=== PATIENT | female | born 1975 | race Caucasian/White ===

== ENCOUNTER 2017-03-05 20:19 | Emergency (ER) | payer OTHER, SELFPAY | END 2017-03-05 21:37 | disposition home or self-care (01) | PROVIDERS: Emergency Provider Nurse Practitioner; Family Provider Emergency Medicine; Visit Provider Nurse Practitioner | DX: J06.9 Acute upper respiratory infection, unspecified (principal); E78.5 Hyperlipidemia, unspecified; Z72.0 Tobacco use; Z88.0 Allergy status to penicillin; Z88.8 Allergy status to other drugs, medicaments and biological substances | CPT/HCPCS: 87804; 96372; 99202 ==

== ENCOUNTER → 2017-09-21 13:42 | Outpatient (REF) | payer OTHER, SELFPAY ==
[2017-09-21 18:51] LABS: Amphetamine/Metha Screen,Urine Negative ng/mL (<1000); Barbiturates Screen,Urine Negative ng/mL (<200); Benzodiazepines Screen,Urine Negative ng/mL (<200); Cannabinoid Screen,Urine Negative ng/mL (<50); Cocaine Screen,Urine Negative ng/mL (<300); Methadone Screen,Urine Negative ng/mL (<300); Opiate Screen,Urine Negative ng/mL (<300); Phencyclidine Screen,Urine Negative ng/mL (<25)
== END ==
LOC: LAB 13:42
PROVIDERS: Visit Provider Emergency Medicine
DX: Z79.899 Other long term (current) drug therapy (principal)
CPT/HCPCS: 80305

== ENCOUNTER → 2018-03-19 18:30 | Outpatient (CLI) | payer OTHER, SELFPAY ==
[2018-03-19 21:32] LABS: Amphetamine/Metha Screen,Urine Negative ng/mL (<1000); Barbiturates Screen,Urine Negative ng/mL (<200); Benzodiazepines Screen,Urine Negative ng/mL (<200); Cannabinoid Screen,Urine Negative ng/mL (<50); Cocaine Screen,Urine Negative ng/mL (<300); Methadone Screen,Urine Negative ng/mL (<300); Opiate Screen,Urine Negative ng/mL (<300); Phencyclidine Screen,Urine Negative ng/mL (<25)
== END ==
PROVIDERS: Visit Provider Nurse Practitioner Family
DX: Z79.899 Other long term (current) drug therapy (principal)
CPT/HCPCS: 80305

== ENCOUNTER → 2018-03-22 16:08 | Outpatient (CLI) | payer OTHER, SELFPAY ==
[2018-03-22 16:40] LABS: Basophils % 0.3 % (0.1-2.0); Eosinophils # 0.2 K/mm3 (0.0-0.4); Eosinophils % 1.9 % (0.1-12.0); Hemoglobin 13.4 g/dL (12.2-16.2); Lymphocytes # 1.8 K/mm3 (0.7-4.5); Lymphocytes % 21.9 % (10-50); Mean Corpuscular HGB Conc 33.5 g/dL (31.8-35.4); Mean Corpuscular Hemoglobin 35.4 pg (27.0-31.2); Mean Corpuscular Volume 105.7 fl (81-99); Mean Platelet Volume 7.7 fl (7.4-10.4); Monocytes # 0.4 K/mm3 (0.1-1.0); Monocytes % 4.3 % (1.7-9.3); Neutrophils # 5.9 K/mm3 (1.8-7.8); Neutrophils % 71.5 % (37.0-80.0); Platelet Count 236 K/mm3 (142-424); Red Blood Count 3.78 M/mm3 (4.20-5.40); Red Cell Distribution Width 12.7 % (11.5-17.5); White Blood Count 8.2 K/mm3 (4.8-10.8)
[2018-03-22 19:08] LABS: Alanine Aminotransferase 18 U/L (12-78); Albumin Level 3.6 gm/dL (3.4-5.0); Albumin/Globulin Ratio 1.1 (1.1-1.8); Alkaline Phosphatase 76 U/L (46-116); Anion Gap 14.9 mEq/L (5-15); Aspartate Amino Transferase 16 U/L (15-37); Bilirubin,Total 0.3 mg/dL (0.2-1.0); Blood Urea Nitrogen 14 mg/dL (7-18); Carbon Dioxide 23 mmol/L (21.0-32.0); Chloride 105 mmol/L (98-107); Creatinine,Serum 0.77 mg/dL (0.55-1.02); Estimated Glomerular Filt Rate 81 ml/min (>60); Free Thyroxine Index 2.6 ug/dL (5.93-13.13); GFR (African American) 99 ML/MIN (>60); Globulin 3.4 gm/dl (1.3-3.2); Glucose 100 mg/dL (74-106); Potassium 3.9 mmoL/L (3.5-5.1); Sodium 139 mmol/L (136-145); T4 (Thyroxine) 7.8 ug/dl (4.7-13.3); Thyroid Stimulating Hormone 0.75 uIU/ml (0.358-3.740); Triiodothryronine (T3) Uptake 33 % (31-39)
[2018-03-24 10:32] LABS: Vitamin B12 260 pg/mL (232-1245); Vitamin D 25 Hydroxy 26.5 ng/mL (30.0-100.0)
[2018-03-26 00:19] LABS: Vitamin E Alpha Tocopherol 11.9 mg/L (7.0-25.1)
[2018-03-26 06:39] LABS: Vitamin B6 6.6 ug/L (2.0-32.8); Vitamin E Gamma Tocopherol 2.7 mg/L (0.5-5.5)
[2018-03-26 18:03] LABS: Vitamin C 0.2 mg/dL (0.2-2.0)
[2018-03-29 07:01] LABS: Vitamin K1 0.57 ng/mL (0.13-1.88)
== END ==
PROVIDERS: Visit Provider Nurse Practitioner Family
DX: E56.9 Vitamin deficiency, unspecified (principal); F41.9 Anxiety disorder, unspecified; Z79.899 Other long term (current) drug therapy
CPT/HCPCS: 36415; 80053; 82180; 82607; 82652; 84207; 84425; 84436; 84443; 84446; 84479; 84590; 84597; 85025

== ENCOUNTER → 2018-03-31 07:31 | Outpatient (CLI) | payer OTHER, SELFPAY ==
[2018-03-31 10:06] LABS: Chol/HDL Ratio 2.7 (1-3.5); Cholesterol 183 mg/dL (140-200); HDL Cholesterol 69 mg/dL (29-89); LDL Cholesterol 97 mg/dL (0-130); Triglycerides 84 mg/dL (30-200); VLDL Cholesterol 17 mg/dL (0-40)
[2018-04-04 19:11] LABS: Vitamin B1 112.9 nmol/L (66.5-200.0)
== END ==
PROVIDERS: Visit Provider Nurse Practitioner Family
DX: E56.9 Vitamin deficiency, unspecified (principal); F41.9 Anxiety disorder, unspecified
CPT/HCPCS: 36415; 80061; 84425

== ENCOUNTER → 2018-08-01 23:14 | Outpatient (CLI) | payer OTHER, SELFPAY | PROVIDERS: PCP Emergency Medicine; Visit Provider Emergency Medicine | DX: J06.9 Acute upper respiratory infection, unspecified (principal) ==

== ENCOUNTER → 2018-09-15 15:04 | Outpatient (CLI) | payer OTHER, SELFPAY ==
[2018-09-15 16:08] LABS: Amphetamine/Metha Screen,Urine Negative ng/mL (<1000); Barbiturates Screen,Urine Negative ng/mL (<200); Benzodiazepines Screen,Urine Negative ng/mL (<200); Cannabinoid Screen,Urine Negative ng/mL (<50); Cocaine Screen,Urine Negative ng/mL (<300); Methadone Screen,Urine Negative ng/mL (<300); Opiate Screen,Urine Negative ng/mL (<300); Phencyclidine Screen,Urine Negative ng/mL (<25)
[2018-09-22 09:13] LABS: Alprazolam Negative (Cutoff=100); Benzodiazepines Positive ng/mL (Cutoff=100); Clonazepam Negative (Cutoff=100); Flurazepam Negative (Cutoff=100); Lorazepam Positive (.); Midazolam Negative (Cutoff=100); Temazepam Negative (Cutoff=100); Triazolam Negative (Cutoff=100)
== END ==
PROVIDERS: Visit Provider Emergency Medicine
DX: Z79.899 Other long term (current) drug therapy (principal); F41.9 Anxiety disorder, unspecified
CPT/HCPCS: 80305; 80346

== ENCOUNTER → 2018-10-21 03:38 | Outpatient (CLI) | payer OTHER, SELFPAY ==
[2018-10-21 04:05] VITALS: BMI 19.5
== END ==
LOC: ER 03:54 → OUTP 04:00
PROVIDERS: PCP Emergency Medicine; Visit Provider Emergency Medicine
DX: J32.9 Chronic sinusitis, unspecified (principal)
CPT/HCPCS: 96372; 96401

== ENCOUNTER → 2019-03-17 18:12 | Outpatient (CLI) | payer BC, SELFPAY ==
[2019-03-17 19:55] LABS: Amphetamine/Metha Screen,Urine Negative ng/mL (<1000); Barbiturates Screen,Urine Negative ng/mL (<200); Benzodiazepines Screen,Urine Negative ng/mL (<200); Cannabinoid Screen,Urine Negative ng/mL (<50); Cocaine Screen,Urine Negative ng/mL (<300); Methadone Screen,Urine Negative ng/mL (<300); Opiate Screen,Urine Negative ng/mL (<300); Phencyclidine Screen,Urine Negative ng/mL (<25)
[2019-03-22 11:10] LABS: Alprazolam Negative (Cutoff=100); Benzodiazepines Positive ng/mL (Cutoff=100); Clonazepam Negative (Cutoff=100); Flurazepam Negative (Cutoff=100); Lorazepam Positive (.); Midazolam Negative (Cutoff=100); Temazepam Negative (Cutoff=100); Triazolam Negative (Cutoff=100)
== END ==
PROVIDERS: Visit Provider Nurse Practitioner Family
DX: Z79.899 Other long term (current) drug therapy (principal)
CPT/HCPCS: 80305; 80346

== ENCOUNTER → 2019-09-20 14:07 | Outpatient (CLI) | payer BC, SELFPAY ==
--- NOTE | 2019-09-20 14:09 | XR_ITS ---
PROCEDURE: XR KNEE RT 4V CLINICAL INDICATION: right knee pain COMPARISON: No exams were available for comparison FINDINGS: No fracture or dislocation. No lytic or blastic change. There is normal mineralization. The joint spaces are well-preserved. No significant degenerative/arthritic changes. No erosive changes evident. Other findings:None. IMPRESSION: Negative right knee Dictated by: Carlos A Boyce MD 09/20/2019 15:21 Electronically signed by Carlos A Boyce MD in [facility] 09/20/2019 15:21
== END ==
PROVIDERS: PCP Emergency Medicine; Visit Provider Orthopaedic Surgery
DX: M25.561 Pain in right knee (principal)
CPT/HCPCS: 73564

== ENCOUNTER 2019-09-22 14:00 | Outpatient (RCR) | payer BC, SELFPAY ==
--- NOTE | 2019-08-29 15:25 | HMH.PTOPEV ---
PT Outpatient Evaluation Rehab PT Outpatient Evaluation Start: 08/29/19 14:02 Freq: Status: Active Protocol: Document 08/29/19 14:02 BRODY (Rec: 08/29/19 15:25 BRODY [id number]) Electronically Signed By Mukul Meyer, PT 08/29/19 14:02 Outpatient Therapy Subjective History Subjective History Pt reports injury to R knee ~2 weeks, twisting injury caused by slipping on wet spot. Pt reports mostly anterior R knee pain, 'crunching' sounds, and intermittent popiteal area pain. Chief Complaint Pain,Clicks,Weakness Symptom Type Ache,Dull Symptoms Relieved By Rest/Positioning,Heat,Ice Symptoms Aggravated By Physical Activity,Walking Prior Functional Limitations None Current Functional Limitations Housework,Walking,Stairs Symptom Description Constant but Variable Level of pain today (0-10) 4 Pain scale - at its best (0-10) 4 Pain scale - at its worst (0-10) 7 Hip/Knee Eval Gait Observation General Gait Pattern Observation Antalgic Gait Palpation Tenderness right Knee Palpation Finding Tenderness Knee Palpation Overall Comment 2-3/4 pat tendon, quad tendon MMT Hip Flexion Strength Grade 4 Good Hip Abduction Strength Grade 4- Good- Hip Adduction Strength Grade 4- Good- Hip Extension Strength Grade 4- Good- Hip External Rotation Strength Grade 4 Good Hip Internal Rotation Strength Grade 4 Good Knee Extension Strength Grade 5 Normal Knee Flexion Strength Grade 5 Normal ROM Knee Flexion Active Range of Motion ( 0-150 degrees) Special Tests Patellar Grind Test Positive Right Patellar Compression Test Positive Right Outpatient Therapy Assessment Impairments Problems/Impairmments Palpation Tenderness,Impaired Range of Motion,Impaired Strength,Impaired Gait Pattern ,Impaired Walking,Impaired Household Care,Impaired Stair Climbing,Subjective C/O Pain, Impaired Self Care/Self Management Prognosis Rehab Potential Good Clinical Impression Consistent with Diagnosis Yes Short Term Goals Number of Weeks 4 Decreased Palpation Tenderness Yes: 1-2/4 Increase Range of Motion Yes: wfl w/o PAIN Increase Strength Yes: 4/5 Increase Ability to Walk Yes: 30MIN Improve Ability For Household Care Yes: 30MIN Decrease Subjective C/O Pain Yes: 05/23 Patient to be Ind w/ HEP
== END 2019-09-22 14:05 | disposition home or self-care (01) ==
LOC: PT 14:00
PROVIDERS: PCP Emergency Medicine; Visit Provider Emergency Medicine
DX: M25.561 Pain in right knee (principal)
CPT/HCPCS: 97010; 97014; 97035; 97110; 97163; G0283

== ENCOUNTER 2019-10-03 20:41 | Outpatient (CLI) | payer BC, SELFPAY ==
[2019-10-03 20:57] VITALS: BMI 19.5
[2019-10-03 20:59] VITALS: BP 115/90; PULSE 88; RESP 15; TEMP 36.5; O2SAT 100
[2019-10-03 21:01] VITALS: BP 115/90; PULSE 88; RESP 15; TEMP 36.5; O2SAT 99
== END 2019-10-03 21:12 | disposition home or self-care (01) ==
LOC: INF 20:45
PROVIDERS: PCP Emergency Medicine; Visit Provider Emergency Medicine
DX: R42 Dizziness and giddiness (principal)
CPT/HCPCS: 96372

== ENCOUNTER → 2019-10-06 14:20 | Outpatient (CLI) | payer BC, SELFPAY ==
--- NOTE | 2019-10-06 14:20 | MR_ITS ---
PROCEDURE: MR KNEE RT WO CON CLINICAL INDICATION: right knee pain/ evaluate for meniscal tear Medial sided knee pain. Pain worse when walking up steps. Grinding in knee. Prior X-Ray 09-20-19 COMPARISON: XR KNEE RT 4V from 09/20/2019 TECHNIQUE: Routine multiplanar multi echo sequences are performed without gadolinium enhancement. FINDINGS: The cruciate ligaments, collateral ligaments, patellar tendon, and quadriceps tendon appear intact. There is a nondisplaced horizontal tear involving the posterior horn of the medial meniscus. The patellar cartilage is preserved. No significant arthritic changes. There is a small cystic area in the proximal tibia centrally and posteriorly measuring 4 mm with a small channel leading to the articular surface without overlying bone marrow edema. IMPRESSION: 1. Nondisplaced horizontal tear involves the posterior horn of the medial meniscus. This may or may not extend to the tibial articular surface but does appear to extend to the medial and posterior free edge of the meniscus 2. Small cystic lesion in the proximal tibia Dictated by: Carlos A Boyce MD 10/07/2019 13:10 Electronically signed by Carlos A Boyce MD in [facility] 10/07/2019 13:10
== END ==
PROVIDERS: PCP Emergency Medicine; Visit Provider Orthopaedic Surgery
DX: G89.29 Other chronic pain (principal); M25.561 Pain in right knee; S89.91XA Unspecified injury of right lower leg, initial encounter
CPT/HCPCS: 73721

== ENCOUNTER → 2019-10-18 09:49 | Outpatient (POV) | payer BC, SELFPAY | PROVIDERS: PCP Emergency Medicine; Visit Provider Otolaryngology | DX: Z00.00 Encounter for general adult medical examination without abnormal findings (principal) ==

== ENCOUNTER 2019-10-28 23:36 | Emergency (ER) | payer BC, SELFPAY ==
[2019-10-28 23:52] VITALS: BP 115/79; PULSE 91; RESP 18; TEMP 36.8; O2SAT 99; BMI 19.5
--- NOTE | 2019-10-29 00:24 | CT_ITS ---
PROCEDURE: CT HEAD/BRAIN WO CON CLINICAL INDICATION: previous fall Patient has problems with balance COMPARISON: No exams were available for comparison TECHNIQUE: Axial images obtained. All CT scans at the facility use one or more dose reduction, viz: automated exposure control, ma/kV adjustment per patient size (including targeted exams where dose is matched to indication, i.e. head), or iterative reconstruction technique. FINDINGS: No midline shift, mass effect, intracranial hemorrhage, hydrocephalus, or extra-axial fluid collection is evident. The calvarium has an unremarkable appearance. No mastoid effusion. No sinus air-fluid level. The internal auditory canals appear normal bilaterally. If symptoms persist a follow-up MRI scan of the brain may be helpful for additional evaluation. IMPRESSION: No acute intracranial finding Dictated by: Dr. Ignacio Rios MD 10/29/2019 07:29 Dr. Ignacio Rios MD in [facility] 10/29/2019 07:29
--- NOTE | 2019-10-29 00:27 | HMH.EDDIZZ ---
ED Disposition Clinical Impression: Vertigo, Neck pain on left side Disposition: Home, Self-Care Condition on Discharge: Good Instructions: Vertigo Additional Instructions: call or see pcp thursday Referrals: David Lee MD [Primary Care Provider] - - Critical Care Critical Care Time: No Attestation: On 10/28/19, the high probability of a clinically significant, sudden or life threatening deterioration of the following system(s) required my full and direct attention, intervention and personal management. The time I documented below is in addition to time spent performing reported procedures but includes the following listed in this critical care notation. Medical Decision Making - Medical Records Medical records reviewed: Yes: I reviewed the patient's medical records. - Ish Inquiry Pt receiving controlled substance: No Vital Signs: 10/28/19 23:52 10/29/19 00:50 Temperature 98.3 F Temperature Source Oral Pulse Rate [Left] 91 H Respiratory Rate 18 Blood Pressure [Left Arm] 115/79 Blood Pressure [Orthostatic Lying Right Arm] 116/76 Blood Pressure [Orthostatic Sitting Right Arm] 107/86 L Blood Pressure [Orthostatic Standing Right Arm] 121/76 Blood Pressure Mean [Left Arm] 91 Blood Pressure Source [Left Arm] Automatic Cuff Blood Pressure Position [Left Arm] Supine 02 Sat by Pulse Oximetry 99 Oxygen Delivery Method Room Air - Lab Data Lab results reviewed: Yes: I reviewed the patient's lab results. Lab Results 10/29/19 00:30: WBC 9.5, RBC 4.11 L, Hgb 14.8, Hct 43.2, MCV 105.3 H, MCH 36.0 H, MCHC 34.2, RDW 12.7, Plt Count 223, MPV 8.7, Neut % (Auto) 75.6, Lymph % (Auto) 17.3, [place] % (Auto) 4.8, Eos % (Auto) 2.0, Baso % (Auto) 0.3, Neut # (Auto) 7.2, Lymph # (Auto) 1.7, [place] # (Auto) 0.5, Eos # (Auto) 0.2, Baso # (Auto) 0.0 10/29/19 00:30: Sodium 138, Potassium 3.8, Chloride 101, Carbon Dioxide 28, Anion Gap 12.8, BUN 12, Creatinine 0.70, Estimated Creat Clear 79, Estimated GFR 90, Est GFR ( Amer) 109, Glucose 96, Calcium 9.2, C-Reactive Protein 1.5 10/29/19 00:30: ESR 15 Result diagrams: 10/29/19 00:30 10/29/19 00:30 Orders (Tests/Meds): ED MEDICATIONS Generic Name Dose Route Start Last Admin Trade Name Lia PRN Reason Stop Dose Admin Sodium Chloride 1,000 mls @ 999 mls/hr 10/29/19 01:00 10/29/19 00:51 Sod Chlor 0.9% 1000ml Bag IV 10/29/19 02:00 999 mls/hr .Q1H1M MARYANN Administration ORDERS Category Date Time Status CT cervical spine wo con Stat Cat Scan 10/29/19 00:[address] head/brain wo con Stat Cat Scan 10/29/19 00:24 Taken Folate Routine Lab 10/29/19 00:30 Received T4 (Thyroxine) Stat Lab 10/29/19 00:30 Received TSH [Thyroid Stimulating Hormone] Stat Lab 10/29/19 00:30 Received Vitamin B12 Routine Lab 10/29/19 01:13 Received - CT Data CT Scan: Head, C-Spine Time Received: 01:[address] Reviewed: Yes: I have viewed the radiologist's interpretation Preliminary Findings: Abnormal (nonspecific ) Dizzy HPI - General Chief Complaint: Dizziness Stated Complaint: Dizziness, neck and shoulder pain Time Seen by Provider: 10/29/19 00:10 Mode of Arrival: Ambulatory Source of Information: Patient, Spouse, Medical Record Limitations: No Limitations Description of Symptoms (Recalled from ER Triage Doc. by RN): pt states on September 30 she fell and hurt her neck. she states ever since she has had neck, shoulder and back pain. its currently 5/10. She also states since the fall she has been having equilibrium problems and that it feels like im rocking. - History of Present Illness HPI Narrative: lat neck pain and headache with episodes of dizzyness and at times unsteady gait - no fever or other sx MD complaint: lightheadedness, difficulty walking Onset (ago): day(s) Timing: waxing/waning Description: off-balance History of similar episodes: Yes History of trauma: No Severity: moderate Relieving factors: remaining still Associated symp
--- NOTE | 2019-10-29 00:29 | CT_ITS ---
PROCEDURE: CT CERVICAL SPINE WO CON CLINICAL INDICATION: neck pain Recent fall COMPARISON: No exams were available for comparison TECHNIQUE: Axial images obtained with sagittal and coronal reformats. All CT scans at the facility use one or more dose reduction, viz: automated exposure control, ma/kV adjustment per patient size (including targeted exams where dose is matched to indication, i.e. head), or iterative reconstruction technique. Axial spiral CT scanning performed of the cervical spine beginning at the base of the skull and continuing to the upper T-spine. 3-D multiplanar reconstruction with 3-D manipulation of volumetric data set in image rendering was completed by the radiologist and/or technologist with the supervision of the radiologist on independent workstation. FINDINGS: 1 there is normal curvature and alignment. C1 through C7 appear intact. Disc spaces are well maintained throughout. The spinal canal is normal in size throughout. There is no abnormal disc protrusion. The prevertebral soft tissues are normal and the odontoid is normal. The lung apices are clear bilaterally. IMPRESSION: Cervical spine intact with no fracture nor subluxation. Dictated by: Dr. Ignacio Rios MD 10/29/2019 07:31 Dr. Ignacio Rios MD in [place] 10/29/2019 07:31
[2019-10-29 00:38] LABS: Basophils % 0.3 % (0.1-2.0); Eosinophils # 0.2 K/mm3 (0.0-0.4); Hematocrit 43.2 % (37.0-47.0); Hemoglobin 14.8 g/dL (12.2-16.2); Lymphocytes # 1.7 K/mm3 (0.7-4.5); Lymphocytes % 17.3 % (10-50); Mean Corpuscular HGB Conc 34.2 g/dL (31.8-35.4); Mean Corpuscular Volume 105.3 fl (81-99); Mean Platelet Volume 8.7 fl (7.4-10.4); Monocytes # 0.5 K/mm3 (0.1-1.0); Monocytes % 4.8 % (1.7-9.3); Neutrophils # 7.2 K/mm3 (1.8-7.8); Neutrophils % 75.6 % (37.0-80.0); Platelet Count 223 K/mm3 (142-424); Red Blood Count 4.11 M/mm3 (4.20-5.40); Red Cell Distribution Width 12.7 % (11.5-17.5); White Blood Count 9.5 K/mm3 (4.8-10.8)
--- NOTE | 2019-10-29 00:39 | PC.NURSE ---
to ct at this time.
[2019-10-29 00:49] LABS: Anion Gap 12.8 mEq/L (5-15); Blood Urea Nitrogen 12 mg/dl (7-17); Calcium 9.2 mg/dl (8.4-10.2); Carbon Dioxide 28 mmol/L (22.0-30.0); Chloride 101 mmol/L (98-107); Creatinine Clearance Estimated 79 mL/min (50-200); Estimated Glomerular Filt Rate 90 ml/min (>60); GFR (African American) 109 ML/MIN (>60); Glucose 96 mg/dl (74-100); Potassium 3.8 mmoL/L (3.5-5.1); Sodium 138 mmol/L (136-145)
[2019-10-29 00:50] VITALS: BP 107/86; BP 116/76; BP 121/76
[2019-10-29 00:54] LABS: C-Reactive Protein 1.5 mg/L (0-4)
[2019-10-29 01:01] LABS: Erythrocyte Sedimentation Rate 15 mm/hr (0-20)
--- NOTE | 2019-10-29 01:02 | PC.NURSE ---
return from ct at this time.
[2019-10-29 01:50] LABS: T4 (Thyroxine) 10.2 ug/dl (5.53-11.0)
[2019-10-29 02:18] VITALS: BP 117/79; PULSE 81; RESP 16; TEMP 36.8
[2019-10-31 10:31] LABS: Vitamin B12 214 pg/mL (232-1245)
[2019-10-31 10:32] LABS: Folate 9.4 ng/mL (>3.0)
== END 2019-10-29 02:22 | disposition home or self-care (01) ==
PROVIDERS: Emergency Provider Emergency Medicine; PCP Emergency Medicine
DX: R42 Dizziness and giddiness (principal); M54.2 Cervicalgia; K21.9 Gastro-esophageal reflux disease without esophagitis; M79.7 Fibromyalgia; F41.9 Anxiety disorder, unspecified; Z88.8 Allergy status to other drugs, medicaments and biological substances; Z88.0 Allergy status to penicillin; Z90.710 Acquired absence of both cervix and uterus
CPT/HCPCS: 70450; 72125; 80048; 82607; 82746; 84436; 84443; 85025; 85651; 86140; 96365; 99283

== ENCOUNTER 2019-10-31 12:44 | Emergency (ER) | payer BC, SELFPAY ==
--- NOTE | 2019-10-31 12:48 | PC.NURSE ---
Pt to restroom upon arrival to ED. Pt has family with her that she requests to go to the bathroom with her because she feels scared
[2019-10-31 12:59] VITALS: BP 130/90; PULSE 115; RESP 18; O2SAT 99; BMI 18.3
[2019-10-31 13:20] LABS: Microscopic, Urine URINE MICROSCOPIC (MICROSCOPIC)
[2019-10-31 13:21] LABS: Basophils % 0.1 % (0.1-2.0); Eosinophils # 0.1 K/mm3 (0.0-0.4); Eosinophils % 0.5 % (0.1-12.0); Hematocrit 41.6 % (37.0-47.0); Lymphocytes # 0.8 K/mm3 (0.7-4.5); Lymphocytes % 7.3 % (10-50); Mean Corpuscular HGB Conc 33.7 g/dL (31.8-35.4); Mean Corpuscular Hemoglobin 35.5 pg (27.0-31.2); Mean Corpuscular Volume 105.4 fl (81-99); Mean Platelet Volume 8.8 fl (7.4-10.4); Monocytes # 0.3 K/mm3 (0.1-1.0); Neutrophils # 10.1 K/mm3 (1.8-7.8); Platelet Count 213 K/mm3 (142-424); Red Blood Count 3.95 M/mm3 (4.20-5.40); Red Cell Distribution Width 12.5 % (11.5-17.5); White Blood Count 11.3 K/mm3 (4.8-10.8)
[2019-10-31 13:22] LABS: MANUAL DIFFERENTIAL MANUAL DIFFERENTIAL (MANUAL DIFF)
[2019-10-31 13:23] LABS: Appearance,Urine CLEAR (Clear); Bilirubin,Urine Negative (Negative); Blood, Urine TRACE-I (Negative); Color,Urine YELLOW (Yellow); Glucose,Urine (UA) Negative (Negative); Ketones,Urine Negative (Negative); Leukocyte Esterase,Urine Negative (Negative); Nitrate,Urine Negative (Negative); PH,Urine 5.5 (5.0-8.5); Protein,Urine Negative (Negative); Specific Gravity, Urine <= 1.005 (1.005-1.030); Urobilinogen,Urine 0.2 EU/dl (0.2)
[2019-10-31 13:26] LABS: Chloride 102 mmol/L (98-107); Sodium 135 mmol/L (136-145); Urine Pregnancy, HCG Qual. Negative (Negative)
[2019-10-31 13:27] LABS: Potassium 3.7 mmoL/L (3.5-5.1)
[2019-10-31 13:29] LABS: Blood Urea Nitrogen 12 mg/dl (7-17); Creatinine Clearance Estimated 77 mL/min (50-200); Estimated Glomerular Filt Rate 90 ml/min (>60); GFR (African American) 109 ML/MIN (>60)
[2019-10-31 13:30] LABS: Anion Gap 12.7 mEq/L (5-15); Calcium 9.2 mg/dl (8.4-10.2); Carbon Dioxide 24 mmol/L (22.0-30.0); Glucose 108 mg/dl (74-100)
--- NOTE | 2019-10-31 13:39 | HMH.EDANX ---
ED Disposition Clinical Impression: Acute anxiety Disposition: Home, Self-Care Condition on Discharge: Good Instructions: Anxiety and Panic Attacks (Alternative Therapy), Anxiety Disorders Referrals: David Lee MD [Primary Care Provider] - 3 days - Critical Care Critical Care Time: No Attestation: On 10/31/19, the high probability of a clinically significant, sudden or life threatening deterioration of the following system(s) required my full and direct attention, intervention and personal management. The time I documented below is in addition to time spent performing reported procedures but includes the following listed in this critical care notation. Medical Decision Making - Medical Records Medical records reviewed: Yes: I reviewed the patient's medical records. - Ish Inquiry Pt receiving controlled substance: No Vital Signs: 10/31/19 12:59 Pulse Rate [Radial] 115 H Respiratory Rate 18 Blood Pressure [Right Arm] 130/90 Blood Pressure Mean [Right Arm] 103 Blood Pressure Source [Right Arm] Automatic Cuff Blood Pressure Position [Right Arm] Sitting 02 Sat by Pulse Oximetry 99 Oxygen Delivery Method Room Air - Lab Data Lab results reviewed: Yes: I reviewed the patient's lab results. Lab Results 10/31/19 13:12: Urine Color Yellow, Urine Appearance Clear, Urine pH 5.5, Ur Specific [place] <= 1.005, Urine Protein Negative, Urine Glucose (UA) Negative, Urine Ketones Negative, Urine Blood Trace-i, Urine Nitrate Negative, Urine Bilirubin Negative, Urine Urobilinogen 0.2, Ur Leukocyte Esterase Negative 10/31/19 13:12: WBC 11.3 H, RBC 3.95 L, Hgb 14.0, Hct 41.6, MCV 105.4 H, MCH 35.5 H, MCHC 33.7, RDW 12.5, Plt Count 213, MPV 8.8, Neut % (Auto) 89.0 H, Lymph % (Auto) 7.3 L, [place] % (Auto) 3.0, Eos % (Auto) 0.5, Baso % (Auto) 0.1, Neut # (Auto) 10.1 H, Lymph # (Auto) 0.8, [place] # (Auto) 0.3, Eos # (Auto) 0.1, Baso # (Auto) 0.0, Total Counted 100, Neutrophils % (Manual) 85 H, Band Neutrophils % 4.0, Lymphocytes % (Manual) 8 L, Monocytes % (Manual) 3, Platelet Estimate Normal, RBC Morphology Normal 10/31/19 13:12: Urine HCG, Qual Negative 10/31/19 13:12: Sodium 135 L, Potassium 3.7, Chloride 102, Carbon Dioxide 24, Anion Gap 12.7, BUN 12, Creatinine 0.70, Estimated Creat Clear 77, Estimated GFR 90, Est GFR ( Amer) 109, Glucose 108 H, Calcium 9.2 Result diagrams: 10/31/19 13:12 10/31/19 13:12 Orders (Tests/Meds): ED MEDICATIONS Generic Name Dose Route Start Last Admin Trade Name Freq PRN Reason Stop Dose Admin Sodium Chloride 1,000 mls @ 999 mls/hr 10/31/19 13:00 10/31/19 13:18 Sod Chlor 0.9% 1000ml Bag IV 10/31/19 14:00 999 mls/hr .Q1H1M MARYANN Administration ORDERS Category Date Time Status Urinalysis and Microscopic Stat Lab 10/31/19 13:12 Results Medical Decision Narrative: Patient appears very anxious here. She is able to walk without any ataxia, she does not have any objective findings of vertigo or cerebellar findings on exam. She is tachycardic, but this improves when she calms down. No orthostasis. She feels dehydrated, so was given a liter of fluids. There is no significant metabolic derangement or anemia. Advised continued follow-up with her primary care provider for her increasing anxiety over the last several weeks. No associated chest pain or shortness of breath, unlikely ACS or pulmonary embolus. Anxiety HPI - General Chief Complaint: Anxiety Stated Complaint: dizzy, nausea,anxiety Time Seen by Provider: 10/31/19 13:39 Mode of Arrival: Ambulatory Source of Information: Patient, Spouse Limitations: No Limitations Description of Symptoms (Recalled from ER Triage Doc. by RN): Per patient she feels unstable and like she is going to pass out at times. - History of Present Illness HPI narrative: This is a 44-year-old female who struggles chronically with anxiety who presents to the emergency department for worsening anxiety over the last 3 weeks with assoc
[2019-10-31 13:43] LABS: Lymphocytes % 8 % (10-50); Monocytes % 3 % (2-9); Neutrophils % 85 % (42-76); Platelet Estimate Normal; RBC Morphology Normal; Total Cells Counted 100
[2019-10-31 13:47] LABS: Bacteria,Urine Trace /lpf; RBC,Urine Occasional #/hpf (0-3); WBC,Urine Occasional #/hpf (0-3)
[2019-10-31 13:59] VITALS: BP 130/90; PULSE 115; RESP 18; TEMP 36.7; O2SAT 99
== END 2019-10-31 14:00 | disposition home or self-care (01) ==
PROVIDERS: Emergency Provider Emergency Medicine; PCP Emergency Medicine
DX: F41.0 Panic disorder [episodic paroxysmal anxiety] (principal); K21.9 Gastro-esophageal reflux disease without esophagitis; R42 Dizziness and giddiness; M79.7 Fibromyalgia; Z88.8 Allergy status to other drugs, medicaments and biological substances; Z88.0 Allergy status to penicillin
CPT/HCPCS: 80048; 81001; 81025; 85007; 85025; 96365; 99282

== ENCOUNTER 2019-11-24 13:47 | Emergency (ER) | payer BC, SELFPAY ==
[2019-11-24 14:41] VITALS: BP 99/75; PULSE 91; RESP 14; O2SAT 99; BMI 18.4
--- NOTE | 2019-11-24 14:45 | HMH.EDUTC ---
[facility] [place] Disposition Clinical Impression: Sinusitis Qualifiers: Sinusitis location: unspecified location Chronicity: unspecified Qualified Code(s): J32.9 - Chronic sinusitis, unspecified Disposition: Home, Self-Care Condition on Discharge: Good Instructions: Sinusitis, DI for Sinusitis Additional Instructions: *Monitor Temp, Over the counter Motrin or Tylenol as directed/as needed Tylenol every 4 hours and Motrin every 6 hours (as long as your family doctor has told you that you can take it) for fever or pain. and straight to ER if unable to lower temp less than 101.0 after medication given *Warm salt water gargles may help to soothe the throat *Throat Lozenges *Warm fluids like tea with honey may help to soothe the throat *Sleep elevated *Humidifier/Vaporizer *Flonase 2 sprays in each nostril daily but be aware that it may take 2-3 days before you notice improvement Take medication as prescribed Follow up IMMEDIATELY for new or worsening symptoms or no Noticeable improvement over the next 48-72 hours. 911 for difficulty breathing or swallowing Prescriptions: Cefdinir [Cefdinir 250mg/5ml Oral Susp] 300 mg PO BID 10 Days #120 ml Transmission Status: Pending to [facility] Referrals: David Lee MD [Primary Care Provider] - As needed Time of Disposition: 14:52 Medical Decision Making - Ish Inquiry Pt receiving controlled substance: No Ish was queried for this patient: No Vital Signs: 11/24/19 14:41 Pulse Rate [Right Brachial] 91 H Respiratory Rate 14 Blood Pressure [Right Arm] 99/75 L Blood Pressure Mean [Right Arm] 83 Blood Pressure Source [Right Arm] Automatic Cuff Blood Pressure Position [Right Arm] Sitting 02 Sat by Pulse Oximetry 99 Oxygen Delivery Method Room Air Medical Decision Narrative: Patient states that she is allergic to PCN but has taken Cephasporins in the past without reaction or complications [facility] [place] HPI - General Stated complaint: Sinus pressure in face, fatigue Time Seen by Provider: 11/24/19 14:45 Mode of Arrival: Ambulatory Source of Information: Patient Limitations: No Limitations Description of Symptoms (Recalled from Triage Doc. by RN): PATIENT C/O SINUS CONGESTION/PRESSURE AND FATIGUE HEENT Symptoms (Recalled from RN notes): Yes Resp Symptoms (Recalled from RN notes): No Skin Symptoms (Recalled from RN notes): No MS Symptoms (Recalled from RN notes): No Functional Status (Recalled from RN notes): WNL - History of Present Illness Provider Complaint: Patient states that she has been having sinus pain and pressure along with sore itchy throat States that it has continued to get worse over the last few weeks States that she has been blowing thick yellowish mucous from her nose States that she was worried that she may have a sinus infection again so she came in to get checked - Related Data Previous Rx's Medication Instructions Recorded lorazepam 1 mg tablet 1 mg PO TID #90 tab 11/07/19 Cefdinir [Cefdinir 250mg/5ml Oral 300 mg PO BID 10 Days #120 ml 11/24/19 Susp] Allergies Allergy/AdvReac Type Severity Reaction Status Date / Time rice Allergy Intermediate S-DIFF. Verified 11/07/19 14:56 BREATHING diphenhydramine Allergy Mild NA-DIZZINES Verified 11/07/19 14:56 [DIPHENHYDRAMINE] S lansoprazole [From PREVACID] Allergy Mild CHEST PAIN Verified 11/07/19 14:56 Corticosteroids Allergy Unknown BLACK OUT Verified 11/07/19 14:56 (Glucocorticoids) Fish Containing Products Allergy Unknown NA-NAUSEA Verified 11/07/19 14:56 [FISH CONTAINING PRODUCTS] penicillin G [PENICILLIN G] Allergy Unknown I-ITCHING Verified 11/07/19 14:56 SHELLFISH (FOOD) Allergy Mild UNKNOWN Uncoded 11/07/19 14:56 [place] Allergy Unknown Uncoded 11/07/19 14:56 - Worker's Comp Is this a Worker's Comp case?: No [facility] History - Hepatitis A Screen Drug use history?: No High risk sexual behaviors?: No History of sexually transmitted infection?: No
[2019-11-24 15:04] VITALS: BP 99/75; PULSE 91; RESP 14; TEMP 36.7; O2SAT 99
== END 2019-11-24 15:10 | disposition home or self-care (01) ==
PROVIDERS: Emergency Provider Nurse Practitioner; PCP Emergency Medicine
DX: J32.9 Chronic sinusitis, unspecified (principal); F41.9 Anxiety disorder, unspecified; K21.9 Gastro-esophageal reflux disease without esophagitis; M79.7 Fibromyalgia; Z90.710 Acquired absence of both cervix and uterus; F17.210 Nicotine dependence, cigarettes, uncomplicated
CPT/HCPCS: 99201

== ENCOUNTER → 2019-11-25 16:40 | Outpatient (CLI) | payer BC, SELFPAY ==
[2019-11-25 17:04] LABS: Basophils % 0.6 % (0.1-2.0); Eosinophils # 0.1 K/mm3 (0.0-0.4); Eosinophils % 1.4 % (0.1-12.0); Hematocrit 46.4 % (37.0-47.0); Hemoglobin 15.5 g/dL (12.2-16.2); Lymphocytes # 1.7 K/mm3 (0.7-4.5); Lymphocytes % 20.7 % (10-50); Mean Corpuscular HGB Conc 33.5 g/dL (31.8-35.4); Mean Corpuscular Volume 104.6 fl (81-99); Mean Platelet Volume 8.3 fl (7.4-10.4); Monocytes # 0.3 K/mm3 (0.1-1.0); Monocytes % 4.2 % (1.7-9.3); Neutrophils # 5.9 K/mm3 (1.8-7.8); Neutrophils % 73.2 % (37.0-80.0); Platelet Count 239 K/mm3 (142-424); Red Blood Count 4.44 M/mm3 (4.20-5.40); Red Cell Distribution Width 12.8 % (11.5-17.5)
[2019-11-25 17:27] LABS: Alanine Aminotransferase 15 U/L (12-78); Albumin/Globulin Ratio 1.4 (1.1-1.8); Alkaline Phosphatase 79 U/L (38-126); Anion Gap 16.4 mEq/L (5-15); Aspartate Amino Transferase 32 U/L (14-36); Bilirubin,Total 0.5 mg/dl (0.2-1.3); Blood Urea Nitrogen 11 mg/dl (7-17); Calcium 9.9 mg/dl (8.4-10.2); Carbon Dioxide 27 mmol/L (22.0-30.0); Chloride 101 mmol/L (98-107); Chol/HDL Ratio 2.2 (1-3.5); Cholesterol 218 mg/dl (140-200); Estimated Glomerular Filt Rate 90 ml/min (>60); GFR (African American) 109 ML/MIN (>60); Globulin 3.5 g/dL (1.3-3.2); Glucose 120 mg/dl (74-100); HDL Cholesterol 98 mg/dl (40-60); Magnesium 2.2 mg/dl (1.6-2.3); Potassium 4.4 mmoL/L (3.5-5.1); Sodium 140 mmol/L (136-145); Total Protein,Serum 8.5 g/dl (6.3-8.2); Triglycerides 112 mg/dl (30-150); VLDL Cholesterol 22 mg/dL (0-40)
[2019-11-25 17:38] LABS: Direct LDL Cholesterol 88.89 mg/dL (100-129)
[2019-11-25 17:43] LABS: Free T4 (Free Thyroxine) 1.37 ng/dl (0.78-2.19)
[2019-11-25 17:44] LABS: 25-OH Vitamin D, Total 37.6 ng/mL (30-100)
[2019-11-25 17:59] LABS: Thyroid Stimulating Hormone 1.15 uIU/mL (0.465-4.68)
[2019-11-25 18:17] LABS: Vitamin B12 240 pg/mL (239-931)
== END ==
PROVIDERS: Visit Provider Emergency Medicine
DX: R53.83 Other fatigue (principal); K59.00 Constipation, unspecified; E03.9 Hypothyroidism, unspecified
CPT/HCPCS: 36415; 80053; 80061; 82306; 82607; 83735; 84439; 84443; 85025

== ENCOUNTER 2019-12-01 13:00 | Outpatient (RCR) | payer BC, SELFPAY ==
--- NOTE | 2019-11-16 14:15 | HMH.PTOPEV ---
PT Outpatient Evaluation Rehab PT Outpatient Evaluation Start: 11/16/19 13:17 Freq: Status: Active Protocol: Document 11/16/19 13:49 BRODY (Rec: 11/16/19 14:15 BRODY [id number]) Electronically Signed By Mukul Meyer, PT 11/16/19 13:49 Outpatient Therapy Subjective History Subjective History Pt reports initial insult to neck occurred during a knee injury-slip/fall, which ' caused a whiplash injury to my neck I think'. Pt reports R>L sided neck pain, tension, as well as suboccitipal area pain , and describes cervicogenic VASQUEZ's. Pt also reports episodes of 'feeling out of balance when my neck hurts real bad'. Chief Complaint Pain,Stiff Symptom Type Ache,Throb,Sharp,Dull Symptoms Relieved By Rest/Positioning,Heat,Ice, Prescription Meds Symptoms Aggravated By Bending/Stooping,Physical Activity,Twisting,Lifting Prior Functional Limitations Reaching,Lifting,Housework, Bending/Stooping Current Functional Limitations Reaching,Lifting,Housework, Bending/Stooping Symptom Description Constant but Variable Level of pain today (0-10) 5 Pain scale - at its best (0-10) 5 Pain scale - at its worst (0-10) 8 Cervical Eval Palpation Cervical Muscles R Cervical Paraspinal,L Cervical Paraspinal,R Suboccipital,L Suboccipital,R CT Junction,L CT Junction,R Upper Trapezius,L Upper Trapezius Cervical/Thoracic Palpation Findings Tenderness,Spasm,Trigger Point ,Muscle Guarding Posture Head/C-Spine Posture Sitting Position Flexed Head/C-Spine Posture Standing Position Flexed Flexibility Deficits Upper Trapezius Muscle Length (R) Moderate Tightness,(L) Moderate Tightness Levaetor Scapulae Muscle Length (R) Mild Tightness,(L) Mild Tightness Scalene Group Muscle Length (R) Moderate Tightness,(L) Moderate Tightness Pectoralis Major Muscle Length (R) Mild Tightness,(L) Mild Tightness Pectoralis Minor Muscle Length (R) Mild Tightness,(L) Mild Tightness Passive Joint Mobility Cervical PIVM Dec: R OA L OA R AA
== END 2019-12-01 14:00 | disposition home or self-care (01) ==
LOC: PT 13:00
PROVIDERS: PCP Emergency Medicine; Visit Provider Emergency Medicine
DX: M54.2 Cervicalgia; M25.561 Pain in right knee
CPT/HCPCS: 97010; 97035; 97110; 97163

== ENCOUNTER 2019-12-22 13:58 | Emergency (ER) | payer BC, SELFPAY ==
[2019-12-22 13:58] VITALS: BP 107/76; PULSE 103; RESP 18; TEMP 36.9; O2SAT 98; BMI 17.3
--- NOTE | 2019-12-22 14:37 | HMH.EDGENADL ---
ED Disposition Clinical Impression: Episodic peripheral vertigo, Weight loss Disposition: Home, Self-Care Condition on Discharge: Fair Instructions: DI for Vertigo, DI for Benign Paroxysmal Positional Vertigo Additional Instructions: You have been evaluated for episodic vertigo. You would likely benefit from an MRI of the brain. Please call your primary care doctor to have this scheduled. Return to the emergency department if you have any new or worsening symptoms. Try to eat a balanced diet throughout the day. Stay hydrated. Referrals: David Lee MD [Primary Care Provider] - Time of Disposition: 16:31 - Critical Care Critical Care Time: No Attestation: On 12/22/19, the high probability of a clinically significant, sudden or life threatening deterioration of the following system(s) required my full and direct attention, intervention and personal management. The time I documented below is in addition to time spent performing reported procedures but includes the following listed in this critical care notation. Medical Decision Making - Medical Records Medical records reviewed: Yes: I reviewed the patient's medical records. - Ish Inquiry Pt receiving controlled substance: No Vital Signs: 12/22/19 13:58 12/22/19 15:19 12/22/19 15:30 Temperature 98.5 F Temperature Source Oral Pulse Rate Pulse Rate [Radial] 103 H 97 H 93 H Respiratory Rate 18 16 Blood Pressure Blood Pressure [Right Arm] 107/76 L 108/69 L 100/57 L Blood Pressure Mean [Right Arm] 86 82 71 Blood Pressure Source [Right Arm] Automatic Cuff Automatic Cuff Blood Pressure Position Blood Pressure Position [Right Arm] Sitting Sitting Sitting 02 Sat by Pulse Oximetry 98 99 99 Oxygen Delivery Method Room Air Room Air Room Air 12/22/19 16:13 12/22/19 18:08 Temperature 98 F Temperature Source Oral Pulse Rate 87 Pulse Rate [Radial] 72 Respiratory Rate 16 Blood Pressure 115/54 L Blood Pressure [Right Arm] 102/69 L Blood Pressure Mean [Right Arm] 80 Blood Pressure Source [Right Arm] Automatic Cuff Blood Pressure Position Sitting Blood Pressure Position [Right Arm] Sitting 02 Sat by Pulse Oximetry 99 Oxygen Delivery Method Room Air Room Air - Lab Data Lab Results 12/22/19 14:30: Urine Color Yellow, Urine Appearance Clear, Urine pH 5.5, Ur Specific Bard 1.010, Urine Protein Negative, Urine Glucose (UA) Negative, Urine Ketones Trace, Urine Blood Trace-i, Urine Nitrate Negative, Urine Bilirubin Negative, Urine Urobilinogen 0.2, Ur Leukocyte Esterase Negative, Urine RBC 3-5, Urine WBC 3-5, Ur Squamous Epith Cells 3-5 12/22/19 14:30: WBC 7.8, RBC 4.20, Hgb 14.4, Hct 45.6, MCV 108.5 H, MCH 34.3 H, MCHC 31.7 L, RDW 12.9, Plt Count 243, MPV 8.4, Neut % (Auto) 81.6 H, Lymph % (Auto) 13.4, Stafford % (Auto) 3.5, Eos % (Auto) 1.3, Baso % (Auto) 0.2, Neut # (Auto) 6.4, Lymph # (Auto) 1.1, Stafford # (Auto) 0.3, Eos # (Auto) 0.1, Baso # (Auto) 0.0 12/22/19 14:30: Sodium 139, Potassium 3.7, Chloride 103, Carbon Dioxide 25, Anion Gap 14.7, BUN 8, Creatinine 0.70, Estimated Creat Clear 70, Estimated GFR 90, Est GFR ( Amer) 109, Glucose 142 H, Calcium 9.5, Total Bilirubin 0.6, AST 33, ALT 17, Alkaline Phosphatase 63, Total Protein 8.0, Albumin 4.9, Globulin 3.1, Albumin/Globulin Ratio 1.6, TSH 0.53 12/22/19 14:30: Free T4 1.80 Result diagrams: 12/22/19 14:30 12/22/19 14:30 Orders (Tests/Meds): ED MEDICATIONS Discontinued Medications Generic Name Dose Route Start Last Admin Trade Name Eleazarq PRN Reason Stop Dose Admin Sodium Chloride 1,000 mls @ 999 mls/hr 12/22/19 14:45 12/22/19 14:59 Sod Chlor 0.9% 1000ml Bag IV 12/22/19 15:45 999 mls/hr .Q1H1M MARYANN Administration Ketorolac Tromethamine 15 mg 12/22/19 14:45 12/22/19 14:59 Ketorolac 30mg/Ml Vial IV 12/22/19 14:46 15 mg ONCE ONE Administration Medical Decision Narrative: In summary this is a 44-year-old female presenting to the emergenc
[2019-12-22 14:39] LABS: Microscopic, Urine URINE MICROSCOPIC (MICROSCOPIC)
[2019-12-22 14:43] LABS: Appearance,Urine CLEAR (Clear); Basophils % 0.2 % (0.1-2.0); Bilirubin,Urine Negative (Negative); Blood, Urine TRACE-I (Negative); Chloride 103 mmol/L (98-107); Color,Urine YELLOW (Yellow); Eosinophils # 0.1 K/mm3 (0.0-0.4); Eosinophils % 1.3 % (0.1-12.0); Glucose,Urine (UA) Negative (Negative); Hematocrit 45.6 % (37.0-47.0); Hemoglobin 14.4 g/dL (12.2-16.2); Ketones,Urine TRACE (Negative); Leukocyte Esterase,Urine Negative (Negative); Lymphocytes # 1.1 K/mm3 (0.7-4.5); Lymphocytes % 13.4 % (10-50); Mean Corpuscular HGB Conc 31.7 g/dL (31.8-35.4); Mean Corpuscular Hemoglobin 34.3 pg (27.0-31.2); Mean Corpuscular Volume 108.5 fl (81-99); Mean Platelet Volume 8.4 fl (7.4-10.4); Monocytes # 0.3 K/mm3 (0.1-1.0); Monocytes % 3.5 % (1.7-9.3); Neutrophils # 6.4 K/mm3 (1.8-7.8); Neutrophils % 81.6 % (37.0-80.0); Nitrate,Urine Negative (Negative); PH,Urine 5.5 (5.0-8.5); Platelet Count 243 K/mm3 (142-424); Potassium 3.7 mmoL/L (3.5-5.1); Protein,Urine Negative (Negative); Red Cell Distribution Width 12.9 % (11.5-17.5); Sodium 139 mmol/L (136-145); Urobilinogen,Urine 0.2 EU/dl (0.2); White Blood Count 7.8 K/mm3 (4.8-10.8)
[2019-12-22 14:46] LABS: Alanine Aminotransferase 17 U/L (12-78); Albumin Level 4.9 g/dl (3.5-5.0); Albumin/Globulin Ratio 1.6 (1.1-1.8); Alkaline Phosphatase 63 U/L (38-126); Anion Gap 14.7 mEq/L (5-15); Aspartate Amino Transferase 33 U/L (14-36); Bilirubin,Total 0.6 mg/dl (0.2-1.3); Blood Urea Nitrogen 8 mg/dl (7-17); Calcium 9.5 mg/dl (8.4-10.2); Carbon Dioxide 25 mmol/L (22.0-30.0); Creatinine Clearance Estimated 70 mL/min (50-200); Estimated Glomerular Filt Rate 90 ml/min (>60); GFR (African American) 109 ML/MIN (>60); Globulin 3.1 g/dL (1.3-3.2); Glucose 142 mg/dl (74-100)
[2019-12-22 15:18] LABS: Thyroid Stimulating Hormone 0.53 uIU/mL (0.465-4.68)
[2019-12-22 15:19] VITALS: BP 108/69; PULSE 97; O2SAT 99
[2019-12-22 15:30] VITALS: BP 100/57; PULSE 93; RESP 16; O2SAT 99
[2019-12-22 16:13] VITALS: BP 102/69; PULSE 72; O2SAT 99
[2019-12-22 18:08] VITALS: BP 115/54; PULSE 87; RESP 16; TEMP 36.6; O2SAT 98
== END 2019-12-22 18:09 | disposition home or self-care (01) ==
PROVIDERS: Emergency Provider Emergency Medicine; PCP Emergency Medicine
DX: H81.399 Other peripheral vertigo, unspecified ear (principal); R63.4 Abnormal weight loss; F17.210 Nicotine dependence, cigarettes, uncomplicated
CPT/HCPCS: 80053; 81001; 84439; 84443; 85025; 96365; 96375; 99283

== ENCOUNTER 2019-12-24 21:11 | Outpatient (CLI) | payer BC, SELFPAY ==
[2019-12-24 21:55] VITALS: BMI 17.3
--- NOTE | 2019-12-24 21:58 | PC.NURSE ---
Placing orders per MD order but pt is refusing solumedrol r/t allergy. She states she has taken rocephin before and has not had any reaction to it.
[2019-12-24 22:10] VITALS: BP 110/71; PULSE 100; RESP 17; RESP 18; TEMP 36.9; O2SAT 99
== END 2019-12-24 23:10 | disposition home or self-care (01) ==
LOC: OBOUT 21:14 → OUTP 22:53
PROVIDERS: PCP Emergency Medicine; Visit Provider Emergency Medicine
DX: J01.90 Acute sinusitis, unspecified (principal)

== ENCOUNTER → 2020-01-17 16:35 | Outpatient (CLI) | payer BC, SELFPAY ==
--- NOTE | 2020-01-17 16:43 | CT_ITS ---
PROCEDURE: CT SINUS WO CON CLINICAL HISTORY: CHRONIC SINUSITIS Pain and pressure in the frontal sinus with dizziness COMPARISON: No exams were available for comparison TECHNIQUE: Axial images obtained with sagittal and coronal reformats. All CT scans at the facility use one or more dose reduction, viz: automated exposure control, ma/kV adjustment per patient size (including targeted exams where dose is matched to indication, i.e. head), or iterative reconstruction technique. FINDINGS: The frontal sinuses have an unremarkable appearance. The ethmoid sinuses and sphenoid sinus are unremarkable. There is some minimal mucosal thickening involving the medial wall the right maxillary sinus. The ostiomeatal units are patent. No air-fluid levels are evident. No sinus mass. No significant nasal septal deviation. The TMJs and orbits have an unremarkable appearance as do the mastoid sinuses. The middle ears are well aerated. IMPRESSION: Essentially negative CT of the paranasal sinuses with only minimal mucosal thickening of the medial wall the right maxillary sinus. Dictated by: Carlos A Boyce MD 01/18/2020 08:36 Carlos A Boyce MD in [facility] 01/18/2020 08:36
== END ==
PROVIDERS: PCP Emergency Medicine; Visit Provider Allergy & Immunology
DX: J32.9 Chronic sinusitis, unspecified (principal)
CPT/HCPCS: 70486

== ENCOUNTER → 2020-01-29 16:51 | Outpatient (CLI) | payer BC, SELFPAY | PROVIDERS: PCP Emergency Medicine; Visit Provider Emergency Medicine | DX: Z03.818 Encounter for observation for suspected exposure to other biological agents ruled out (principal) | CPT/HCPCS: U0003 ==

== ENCOUNTER 2020-01-30 19:00 | Emergency (ER) | payer BC, SELFPAY ==
[2020-01-30 19:24] VITALS: BP 111/75; PULSE 105; RESP 16; TEMP 36.8; O2SAT 99; BMI 16.8
[2020-01-30 19:39] LABS: Basophils % 0.3 % (0.1-2.0); Eosinophils # 0.1 K/mm3 (0.0-0.4); Eosinophils % 1.2 % (0.1-12.0); Hematocrit 49.6 % (37.0-47.0); Hemoglobin 16.4 g/dL (12.2-16.2); Lymphocytes # 1.9 K/mm3 (0.7-4.5); Lymphocytes % 20.1 % (10-50); Mean Corpuscular Hemoglobin 35.8 pg (27.0-31.2); Mean Corpuscular Volume 108.6 fl (81-99); Mean Platelet Volume 8.6 fl (7.4-10.4); Monocytes # 0.4 K/mm3 (0.1-1.0); Monocytes % 4.5 % (1.7-9.3); Neutrophils % 73.8 % (37.0-80.0); Platelet Count 278 K/mm3 (142-424); Red Blood Count 4.57 M/mm3 (4.20-5.40); Red Cell Distribution Width 13.1 % (11.5-17.5); White Blood Count 9.4 K/mm3 (4.8-10.8)
[2020-01-30 19:40] LABS: Chloride 101 mmol/L (98-107); Potassium 3.6 mmoL/L (3.5-5.1); Sodium 138 mmol/L (136-145)
--- NOTE | 2020-01-30 19:40 | PC.NURSE ---
pt demanded two 'soft pillows' and 'two warm blankets'. advised we could get her a blanket but no guarantee on the pillows due to influx of patients, but that we would try
[2020-01-30 19:42] LABS: Blood Urea Nitrogen 6 mg/dl (7-17); Creatinine Clearance Estimated 68 mL/min (50-200); Estimated Glomerular Filt Rate 90 ml/min (>60); GFR (African American) 109 ML/MIN (>60)
[2020-01-30 19:43] LABS: Alanine Aminotransferase 21 U/L (12-78); Albumin Level 5.1 g/dl (3.5-5.0); Albumin/Globulin Ratio 1.4 (1.1-1.8); Alkaline Phosphatase 81 U/L (38-126); Anion Gap 15.6 mEq/L (5-15); Aspartate Amino Transferase 34 U/L (14-36); Bilirubin,Total 0.6 mg/dl (0.2-1.3); Calcium 9.6 mg/dl (8.4-10.2); Carbon Dioxide 25 mmol/L (22.0-30.0); Globulin 3.6 g/dL (1.3-3.2); Glucose 106 mg/dl (74-100); Total Protein,Serum 8.7 g/dl (6.3-8.2)
[2020-01-30 20:03] LABS: Coronavirus 19 IgG Antibody Negative (Negative); Coronavirus 19 IgM Antibody Negative (Negative)
--- NOTE | 2020-01-30 20:28 | PC.NURSE ---
pt stated she still has a headache but denies wanting any more medication. this nurse offered to turn down the lights for pt. pt denied wanting lights turned down as well
--- NOTE | 2020-01-30 21:15 | HMH.EDHA ---
ED Disposition Clinical Impression: Headache Qualifiers: Headache type: other headache syndrome Qualified Code(s): G44.89 - Other headache syndrome Disposition: Home, Self-Care Condition on Discharge: Good Instructions: DI for Headache Additional Instructions: see pcp and neuro for follow up Referrals: David Lee MD [Primary Care Provider] - - Critical Care Critical Care Time: No Attestation: On 01/30/20, the high probability of a clinically significant, sudden or life threatening deterioration of the following system(s) required my full and direct attention, intervention and personal management. The time I documented below is in addition to time spent performing reported procedures but includes the following listed in this critical care notation. Medical Decision Making - Medical Records Medical records reviewed: Yes: I reviewed the patient's medical records. - Ish Inquiry Pt receiving controlled substance: No Vital Signs: 01/30/20 19:24 Temperature 98.2 F Temperature Source Oral Pulse Rate [Right] 105 H Respiratory Rate 16 Blood Pressure [Right Arm] 111/75 Blood Pressure Mean [Right Arm] 87 Blood Pressure Position [Right Arm] Sitting 02 Sat by Pulse Oximetry 99 Oxygen Delivery Method Room Air - Lab Data Lab results reviewed: Yes: I reviewed the patient's lab results. Lab Results 01/30/20 19:20: WBC 9.4, RBC 4.57, Hgb 16.4 H, Hct 49.6 H, MCV 108.6 H, MCH 35.8 H, MCHC 33.0, RDW 13.1, Plt Count 278, MPV 8.6, Neut % (Auto) 73.8, Lymph % (Auto) 20.1, [place] % (Auto) 4.5, Eos % (Auto) 1.2, Baso % (Auto) 0.3, Neut # (Auto) 7.0, Lymph # (Auto) 1.9, [place]inn # (Auto) 0.4, Eos # (Auto) 0.1, Baso # (Auto) 0.0 01/30/20 19:20: Sodium 138, Potassium 3.6, Chloride 101, Carbon Dioxide 25, Anion Gap 15.6 H, BUN 6 L, Creatinine 0.70, Estimated Creat Clear 68, Estimated GFR 90, Est GFR ( Amer) 109, Glucose 106 H, Calcium 9.6, Total Bilirubin 0.6, AST 34, ALT 21, Alkaline Phosphatase 81, Total Protein 8.7 H, Albumin 5.1 H, Globulin 3.6 H, Albumin/Globulin Ratio 1.4 01/30/20 19:20: SARS-CoV-2 IgG Ab (Rapid) Negative, SARS-CoV-2 IgM Ab (Rapid) Negative Result diagrams: 01/30/20 19:20 01/30/20 19:20 Orders (Tests/Meds): ED MEDICATIONS Generic Name Dose Route Start Last Admin Trade Name Freq PRN Reason Stop Dose Admin Sodium Chloride 1,000 mls @ 999 mls/hr 01/30/20 19:45 01/30/20 19:40 Sod Chlor 0.9% 1000ml Bag IV 01/30/20 20:45 999 mls/hr .Q1H1M MARYANN Administration Sodium Chloride 8 ml 01/30/20 19:34 Sodium Chloride 0.9% 10ml Vial IV 02/29/20 19:33 NEEDED PRN dilute pepcid Discontinued Medications Generic Name Dose Route Start Last Admin Trade Name Freq PRN Reason Stop Dose Admin Famotidine 20 mg 01/30/20 19:34 01/30/20 19:50 Famotidine 20mg/2ml Vial IV 01/30/20 19:35 Not Given ONCE ONE Ketorolac Tromethamine 30 mg 01/30/20 19:34 01/30/20 19:39 Ketorolac 30mg/Ml Vial IV 01/30/20 19:35 30 mg ONCE ONE Administration Promethazine HCl 25 mg 01/30/20 19:36 01/30/20 19:49 Promethazine Hcl 25mg/Ml 1ml Vial IV 01/30/20 19:37 Not Given ONCE ONE Sodium Chloride 25 ml 01/30/20 19:36 01/30/20 19:50 Sodium Chloride 0.9% 25ml Bag IV 01/30/20 19:37 Not Given ONCE ONE Headache HPI - General Chief Complaint: Headache Stated Complaint: headache chiari malformation weakness and tired Time Seen by Provider: 01/30/20 20:35 Mode of Arrival: Ambulatory Source of Information: Patient, Spouse, Medical Record Limitations: No Limitations Description of Symptoms (Recalled from ER Triage Doc. by RN): pt states she has a headache, shoulder pain and neck pain /. pt took tylenol at 1pm with no pain relief. pts two children are covid positive. she tested last night and was negative. pt is also having fatigue and muscle weakness. - History of Present Illness HPI Narrative: has ongoing issues with lt sided hadley and neck pain wi
[2020-01-30 21:39] VITALS: BP 103/62; PULSE 66; RESP 16; TEMP 36.3
[2020-01-30 21:59] LABS: C-Reactive Protein 0.8 mg/L (0-4)
[2020-01-30 22:08] LABS: Erythrocyte Sedimentation Rate 7 mm/hr (0-20)
[2020-01-30 22:45] LABS: Vitamin B12 247 pg/mL (239-931)
[2020-02-02 13:49] LABS: Arsenic, Blood 8 ug/L (2-23); Lead, Blood <1 ug/dL (0-4); Mercury, Blood <1.0 ug/L (0.0-14.9)
== END 2020-01-30 21:41 | disposition home or self-care (01) ==
PROVIDERS: Emergency Provider Emergency Medicine; PCP Emergency Medicine
DX: G44.89 Other headache syndrome (principal); Z01.84 Encounter for antibody response examination; F41.9 Anxiety disorder, unspecified; K21.9 Gastro-esophageal reflux disease without esophagitis; M79.7 Fibromyalgia
CPT/HCPCS: 80053; 82175; 82607; 83655; 83825; 85025; 85651; 86140; 86328; 96365; 96375; 99282

== ENCOUNTER → 2020-02-19 20:05 | Outpatient (CLI) | payer BC, SELFPAY ==
[2020-02-19 21:20] VITALS: BMI 17.3
[2020-02-19 21:34] VITALS: RESP 18
--- NOTE | 2020-02-20 | PC.NURSE ---
pt co pain of neck into her shoulder,sinus pressure pointing to forehead
== END ==
PROVIDERS: PCP Emergency Medicine; Visit Provider Emergency Medicine
DX: R51.9 Headache, unspecified (principal); M54.2 Cervicalgia
CPT/HCPCS: 96360; 96365; 96367; 96375; G0463

== ENCOUNTER → 2020-03-22 17:00 | Outpatient (CLI) | payer BC, SELFPAY ==
[2020-03-22 19:00] LABS: Vitamin B12 235 pg/mL (239-931)
[2020-03-24 18:28] LABS: Homocyst(e)ine 14.1 umol/L (0.0-14.5)
[2020-03-30 00:06] LABS: Methylmalonic Acid 276 nmol/L (0-378)
== END ==
PROVIDERS: Visit Provider Specialist
DX: E53.8 Deficiency of other specified B group vitamins (principal)
CPT/HCPCS: 36415; 82131; 82607; 83090

== ENCOUNTER 2020-03-27 15:00 | Outpatient (RCR) | payer BC, SELFPAY ==
--- NOTE | 2020-02-20 18:15 | HMH.PTOPEV ---
PT Outpatient Evaluation Rehab PT Outpatient Evaluation Start: 02/20/20 16:14 Freq: Status: Active Protocol: Document 02/20/20 17:52 SCOTTIEVITALY (Rec: 02/20/20 18:15 DUNG [id number]) Electronically Signed By Adonis Gonzalez PT 02/20/20 17:52 Outpatient Therapy Subjective History Subjective History This is the initial Physical Therapy evaluation for Liset Davis. Pt reports to PT w/ c/o all over pain but and order for myofascial cervicothoracic and periscapular pain. Pt reports her pain began 19 years ago after epidural for the of her son. Pt reports chronic pain throughout the shoulder blades and neck region. Pt reports this summer she strained her neck twice once was in August when she slipped on spilled Iced tea causing a hyperflexion injury to her neck. The second was in September when she was helping her put up drywall. Pt reprots she re- aggravated in while doing some laundry. Pt had MRI recently which shows Chiari type I malformation - this is causing pt significant anxiety issues on top of her already present and dx'd anxiety disorder. Chief Complaint Pain,Spasms Symptom Type Ache,Throb,Dull Symptoms Relieved By Nothing,Heat,OTC Meds Symptoms Aggravated By Physical Activity,Twisting, Lifting Current Functional Limitations Lifting,Housework,Driving, Recreation Activity Symptom Description Constant but Variable Level of pain today (0-10) 7 Pain scale - at its best (0-10) 4 Pain scale - at its worst (0-10) 10 Cervical Eval Palpation Cervical Muscles R Cervical Paraspinal,L Cervical Paraspinal,R Suboccipital,L Suboccipital,R Upper Trapezius,L Upper Trapezius Cervical/Thoracic Palpation Findings Muscle Guarding Posture Head/C-Spine Posture Sitting Position C-Spine Flattened Head/C-Spine Postu
== END 2020-03-27 15:05 | disposition home or self-care (01) ==
LOC: PT 15:00
PROVIDERS: PCP Emergency Medicine; Visit Provider Specialist
DX: G93.5 Compression of brain (principal); R51.9 Headache, unspecified; M54.2 Cervicalgia
CPT/HCPCS: 97010; 97035; 97110; 97113; 97140; 97163; 97164

== ENCOUNTER 2020-04-28 16:45 | Emergency (ER) | payer BC, SELFPAY ==
[2020-04-28 16:45] VITALS: BP 140/92; PULSE 100; RESP 16; TEMP 36.8; O2SAT 99; BMI 16.8
--- NOTE | 2020-04-28 17:02 | HMH.EDGENADL ---
ED Disposition Clinical Impression: Benign paroxysmal positional vertigo Qualifiers: Laterality: unspecified laterality Qualified Code(s): H81.10 - Benign paroxysmal vertigo, unspecified ear Disposition: Home, Self-Care Condition on Discharge: Good Instructions: DI for Benign Paroxysmal Positional Vertigo Prescriptions: Meclizine HCl [Antivert 25mg tablet] 25 mg PO TID PRN #15 tab PRN Reason: Vertigo Prescription Printed Referrals: PCP,No [Primary Care Provider] - - Critical Care Critical Care Time: No Attestation: On 04/28/20, the high probability of a clinically significant, sudden or life threatening deterioration of the following system(s) required my full and direct attention, intervention and personal management. The time I documented below is in addition to time spent performing reported procedures but includes the following listed in this critical care notation. Medical Decision Making - Medical Records Medical records reviewed: Yes: I reviewed the patient's medical records. - Ish Inquiry Pt receiving controlled substance: No Medical Decision Narrative: Patient describe symptomology most consistent with peripheral vertigo, no indication of central etiology. No lateralizing motor or sensory changes. Normal gait. No vomiting. She has had similar symptoms with weather changes and there has been a large cold front moving through the area, likely prompting this particular episode of BPV. She is alert and oriented x4 with a normal neurologic exam, low suspicion for acute herniation or CVA, subarachnoid hemorrhage, meningitis, encephalitis, acute intracranial catastrophe. Recommended follow-up with ENT and discharged home with prescription for meclizine if needed. General Adult HPI - General Stated complaint: dizzy Time Seen by Provider: 04/28/20 17:02 Mode of Arrival: Ambulatory Source of Information: Patient Limitations: No Limitations - History of Present Illness HPI narrative: This is a 44-year-old female with a past medical history significant for fibromyalgia, Chiari I malformation who presents to the emergency department for evaluation of positional vertigo that started this morning. It started this morning when she rolled over onto her left side in bed, eventually fatigued. It happened again a few hours ago. She denies any lateralizing motor or sensory changes. She is able to ambulate with a non-ataxic gait back to the room and mobilizes on the stretcher without difficulty. No recent fevers, vomiting, diarrhea. She states that she has been struggling with similar symptoms intermittently over the last 6 months and that her symptoms seem to be worse with weather changes, but today it seemed more severe than normal. - Related Data Home Medications Medication Instructions Recorded Confirmed loratadine 10 mg capsule 10 mg PO DAILY 03/05/20 03/22/20 Previous Rx's Medication Instructions Recorded lorazepam 1 mg tablet 1 mg PO TID #90 tab 03/05/20 Meclizine HCl [Antivert 25mg 25 mg PO TID PRN #15 tab 04/28/20 tablet] Allergies Allergy/AdvReac Type Severity Reaction Status Date / Time rice Allergy Intermediate S-DIFF. Verified 03/22/20 15:54 BREATHING diphenhydramine Allergy Mild NA-DIZZINES Verified 03/22/20 15:54 [DIPHENHYDRAMINE] S lansoprazole [From PREVACID] Allergy Mild CHEST PAIN Verified 03/22/20 15:54 Corticosteroids Allergy Unknown BLACK OUT Verified 03/22/20 15:54 (Glucocorticoids) Fish Containing Products Allergy Unknown NA-NAUSEA Verified 03/22/20 15:54 [FISH CONTAINING PRODUCTS] penicillin G [PENICILLIN G] Allergy Unknown I-ITCHING Verified 03/22/20 15:54 SHELLFISH (FOOD) Allergy Mild UNKNOWN Uncoded 12/27/19 13:29 [place] Allergy Unknown Uncoded 12/27/19 13:29 [facility] History - Hepatitis A Screen Attestation statement:: This patient has been screened for Hepatitis A risk factors. Medical History: Reports:: Anxiety, Gastroesopha
[2020-04-28 17:23] VITALS: BP 147/93; PULSE 89; RESP 18; O2SAT 99
[2020-04-28 17:41] VITALS: BP 131/79; PULSE 85; RESP 16; TEMP 36.8; O2SAT 98
== END 2020-04-28 17:42 | disposition home or self-care (01) ==
PROVIDERS: Emergency Provider Emergency Medicine
DX: H81.10 Benign paroxysmal vertigo, unspecified ear (principal); M79.7 Fibromyalgia; F41.9 Anxiety disorder, unspecified; K21.9 Gastro-esophageal reflux disease without esophagitis; F17.210 Nicotine dependence, cigarettes, uncomplicated; Z90.79 Acquired absence of other genital organ(s); Z79.899 Other long term (current) drug therapy
CPT/HCPCS: 99282

== ENCOUNTER 2020-05-08 14:58 | Outpatient (RCR) | payer BC, SELFPAY ==
--- NOTE | 2020-05-08 16:20 | HMH.PTOPEV ---
PT Outpatient Evaluation Rehab PT Outpatient Evaluation Start: 05/08/20 16:10 Freq: Status: Active Protocol: Document 05/08/20 16:10 PHORNE (Rec: 05/08/20 16:19 PHORNE [id number]) Electronically Signed By Jorge Luis Branham, PT 05/08/20 16:10 Outpatient Therapy Subjective History Subjective History Pt is 44 yowf who presents with c/o vertigo with sudden onset ~ 1 wk ago with laying supine or on L side. She reports quick onset of symptoms with position change and duration less than 60 sec. She has multiple co- morbidities which cause difficulty with treatment including, but not limited to: Neck and upper back pain and severe anxiety. Chief Complaint Other Symptom Type Other Symptoms Relieved By Rest/Positioning Symptoms Aggravated By Twisting Prior Functional Limitations None Current Functional Limitations Sleeping Symptom Description Activity Dependent Balance Eval Nystagmus Nystagmus Presence Bilateral Nystagmus Description Geotropic,Left Torsion,Latency - Immediate Oculomotor Gaze Oculomotor Gaze Nml: Vergence Smooth Pursuit Saccades Abn: VOR Cancellation Cover/Uncover Cross Cover Outpatient Therapy Assessment Impairments Problems/Impairmments Impaired Recreational Activities,Impaired Balance Prognosis Rehab Potential Good Clinical Impression Consistent with Diagnosis Yes Short Term Goals Number of Weeks 4 Improve Balance Yes Patient to be Ind w/ HEP Yes Residential Goals Number of Weeks 8 Increase Ability to Sit Yes Return to Recreational Activities Yes Patient to be Ind w/ Advanced HEP Yes Outpatient Therapy Plan of Care Treatment Plan May Include Therapeutic Exercise Including Home Yes Exercise Program Manual Therapy Techniques Yes Neuromuscular Re-education Yes Therapeutic Activities to Return to Yes Previous Functional/Work Level Eval/Re-Eval Yes Frequency Times per week 2 Duration Number of Weeks 8 Addendums This patient is a candidate for social Yes or vocational rehab?
== END 2020-05-08 14:59 | disposition home or self-care (01) ==
LOC: PT 14:58
PROVIDERS: Visit Provider Emergency Medicine
DX: R42 Dizziness and giddiness (principal)
CPT/HCPCS: 97140; 97163

== ENCOUNTER → 2020-05-10 20:09 | Outpatient (CLI) | payer BC, SELFPAY ==
[2020-05-10 20:48] VITALS: BMI 17.6
--- NOTE | 2020-05-10 20:48 | PC.NURSE ---
pt arrived to unit at 2030 for outpt infusion, orders faxed to pharmacy, pt assisted to room 273, pt alert and oriented no distress noted. bp 95/68, p 100, temp 98.9 F, 18, 98% RA iv started to LAC x 2 attempts pt tolerated well, ns and rocephin started. torodol given per orders. pt comfortable will continue to monitor
--- NOTE | 2020-05-10 21:22 | PC.NURSE ---
pt discharged home at this time
== END ==
PROVIDERS: PCP Emergency Medicine; Visit Provider Emergency Medicine
DX: M79.7 Fibromyalgia (principal); H81.10 Benign paroxysmal vertigo, unspecified ear; R55 Syncope and collapse; R52 Pain, unspecified
CPT/HCPCS: 96360; 96361; 96365; 96409; G0463

== ENCOUNTER → 2020-06-01 16:35 | Outpatient (CLI) | payer BC, SELFPAY ==
[2020-06-01 15:46] LABS: Basophils % 0.4 % (0.1-2.0); Eosinophils # 0.2 K/mm3 (0.0-0.4); Eosinophils % 2.3 % (0.1-12.0); Hematocrit 42.9 % (37.0-47.0); Lymphocytes # 1.2 K/mm3 (0.7-4.5); Lymphocytes % 17.8 % (10-50); Mean Corpuscular HGB Conc 32.7 g/dL (31.8-35.4); Mean Corpuscular Hemoglobin 35.5 pg (27.0-31.2); Mean Corpuscular Volume 108.8 fl (81-99); Mean Platelet Volume 8.6 fl (7.4-10.4); Monocytes # 0.4 K/mm3 (0.1-1.0); Monocytes % 5.5 % (1.7-9.3); Neutrophils # 5.1 K/mm3 (1.8-7.8); Platelet Count 229 K/mm3 (142-424); Red Blood Count 3.94 M/mm3 (4.20-5.40); Red Cell Distribution Width 12.6 % (11.5-17.5); White Blood Count 6.9 K/mm3 (4.8-10.8)
[2020-06-03 15:19] LABS: Peripheral Smear Review Scanned Result
== END ==
PROVIDERS: Visit Provider Emergency Medicine
DX: R63.4 Abnormal weight loss (principal)
CPT/HCPCS: 36415; 85025

== ENCOUNTER → 2020-06-04 14:27 | Outpatient (CLI) | payer BC, SELFPAY ==
[2020-06-04 16:14] LABS: Vitamin B12 215 pg/mL (239-931)
[2020-06-06 15:28] LABS: Hematocrit 41.1 % (34.0-46.6)
[2020-06-06 16:46] LABS: Folate, RBC 652 ng/mL (>498)
== END ==
PROVIDERS: Visit Provider Emergency Medicine
DX: D64.9 Anemia, unspecified (principal)
CPT/HCPCS: 36415; 82607; 82747; 85014

== ENCOUNTER → 2020-06-28 16:40 | Outpatient (CLI) | payer BC, SELFPAY ==
[2020-06-28 18:30] LABS: Basophils % 0.3 % (0.1-2.0); Eosinophils # 0.1 K/mm3 (0.0-0.4); Eosinophils % 1.2 % (0.1-12.0); Hematocrit 42.4 % (37.0-47.0); Hemoglobin 13.8 g/dL (12.2-16.2); Lymphocytes # 1.5 K/mm3 (0.7-4.5); Lymphocytes % 18.5 % (10-50); Mean Corpuscular HGB Conc 32.5 g/dL (31.8-35.4); Mean Corpuscular Hemoglobin 35.1 pg (27.0-31.2); Mean Platelet Volume 8.9 fl (7.4-10.4); Monocytes # 0.4 K/mm3 (0.1-1.0); Monocytes % 4.6 % (1.7-9.3); Neutrophils # 6.1 K/mm3 (1.8-7.8); Neutrophils % 75.5 % (37.0-80.0); Platelet Count 245 K/mm3 (142-424); Red Blood Count 3.93 M/mm3 (4.20-5.40); Red Cell Distribution Width 12.8 % (11.5-17.5); White Blood Count 8.1 K/mm3 (4.8-10.8)
[2020-06-28 18:48] LABS: Alanine Aminotransferase 16 U/L (12-78); Albumin Level 4.7 g/dl (3.5-5.0); Albumin/Globulin Ratio 1.6 (1.1-1.8); Alkaline Phosphatase 75 U/L (38-126); Aspartate Amino Transferase 28 U/L (14-36); Bilirubin,Total 0.3 mg/dl (0.2-1.3); Blood Urea Nitrogen 13 mg/dl (7-17); Calcium 9.2 mg/dl (8.4-10.2); Carbon Dioxide 25 mmol/L (22.0-30.0); Chloride 104 mmol/L (98-107); Estimated Glomerular Filt Rate 90 ml/min (>60); GFR (African American) 109 ML/MIN (>60); Glucose 89 mg/dl (74-100); Magnesium 1.9 mg/dl (1.6-2.3); Sodium 137 mmol/L (136-145); Total Protein,Serum 7.7 g/dl (6.3-8.2)
[2020-06-28 19:38] LABS: Erythrocyte Sedimentation Rate 21 mm/hr (0-20); Vitamin B12 265 pg/mL (239-931)
[2020-06-30 16:19] LABS: Deamidated Gliadin Abs, IgA 5 units (0-19); Deamidated Gliadin Abs, IgG 2 units (0-19); Tissue Transglutaminase IgA Ab <2 U/mL (0-3); Tissue Transglutaminase IgG Ab <2 U/mL (0-5)
[2020-07-02 17:09] LABS: Cytoplasmic (C-ANCA) <1:20 titer (Neg:<1:20)
[2020-07-03 12:35] LABS: Anti-Jo-1 <0.2 AI (0.0-0.9); Perinuclear (P-ANCA) <1:20 titer (Neg:<1:20)
[2020-07-03 12:46] LABS: Centromere Pattern >1:1280 (.)
[2020-07-03 17:06] LABS: Antinuclear Antibodies, IFA Positive (.)
[2020-07-05 15:13] LABS: Vitamin C 0.2 mg/dL (0.4-2.0)
[2020-07-05 15:17] LABS: QuantiFERON-TB Gold Plus Negative (Negative)
== END ==
PROVIDERS: Visit Provider Internal Medicine Adolescent Medicine
DX: R63.4 Abnormal weight loss (principal); E53.8 Deficiency of other specified B group vitamins; E55.9 Vitamin D deficiency, unspecified; M79.10 Myalgia, unspecified site
CPT/HCPCS: 36415; 80053; 82180; 82306; 82607; 83516; 83735; 85025; 85651; 86038; 86235; 86256; 86340; 86480

== ENCOUNTER → 2020-08-02 08:22 | Outpatient (CLI) | payer BC, SELFPAY ==
--- NOTE | 2020-08-02 08:27 | US_ITS ---
PROCEDURE: US ABDOMEN LIMITED CLINICAL INDICATION: ABD PAIN COMPARISON: No exams were available for comparison FINDINGS: PANCREAS: Unremarkable. No obvious mass or abnormal fluid collection. No ductal dilatation LIVER: No focal liver lesions demonstrated. Homogeneous echogenicity. No intrahepatic biliary ductal dilatation evident. There is appropriate direction of blood flow within a non dilated portal vein RIGHT KIDNEY: Unremarkable. Normal size and echogenicity. No hydronephrosis GALLBLADDER: Prior cholecystectomy. Common bile duct is normal at 2 mm. IMPRESSION: Prior cholecystectomy otherwise negative Dictated by: Carlos A Boyce MD 08/02/2020 11:47 Carlos A Boyce MD in [facility] 08/02/2020 11:47
== END ==
PROVIDERS: PCP Emergency Medicine; Visit Provider Internal Medicine Adolescent Medicine
DX: R10.84 Generalized abdominal pain (principal)
CPT/HCPCS: 76705

== ENCOUNTER → 2020-08-20 16:22 | Outpatient (CLI) | payer BC, SELFPAY ==
--- NOTE | 2020-08-20 16:40 | MR_ITS ---
PROCEDURE: MR CERVICAL SPINE WO CON CLINICAL INDICATION: CHIARI MALFORMATION TYPE 1 Neck and bilateral shoulder pain. Prior CT 10/29/19. COMPARISON: No exams were available for comparison TECHNIQUE: Standard multiplanar multiecho sequences are performed without contrast. 3-D MIP and myelographic images are also rendered and reviewed FINDINGS: There is normal alignment. Motion artifact somewhat obscures fine detail. The craniocervical junction has an unremarkable appearance. No convincing evidence of Chiari 1 malformation. The cerebellar tonsils do not extend below the level of the foramen magnum. There is normal alignment. The cervical spinal cord has an unremarkable appearance. No extruded herniated disc or canal stenosis apparent. There is a small central disc protrusion at C5-C6 without cord impingement. There is narrowing of the canal at this level at 10 mm. IMPRESSION: Minimal central disc protrusion at C5-C6 without cord impingement otherwise negative MRI of the cervical spine. No evidence of Chiari malformation Dictated by: Carlos A Boyce MD 08/21/2020 07:30 Carlos A Boyce MD in [facility] 08/21/2020 07:30
--- NOTE | 2020-08-20 16:40 | MR_ITS ---
PROCEDURE: MR HEAD/BRAIN WO CON CLINICAL INDICATION: CHIARI MALFORMATION TYPE 1 Dizziness. Weight loss. Occipital head pain. Weakness. Headache [id number]. Prior CT 10/29/19. COMPARISON: CT CT HEAD/BRAIN WO CON from 10/29/2019 TECHNIQUE: Routine multiplanar multi echo sequences are performed without gadolinium enhancement. FINDINGS: No midline shift, mass effect, intracranial hemorrhage, or hydrocephalus is evident. The CP angles, midbrain, and brainstem have an unremarkable appearance. No evidence of acute infarction. The pituitary, optic chiasm, and corpus callosum have an unremarkable appearance. The cerebellar tonsils do not extend below the foramen magnum. The 4th ventricle has an unremarkable appearance. The hippocampal gyri and temporal horns are symmetric. There are a few small T2 white matter hyperintensities which are nonspecific. No mastoid effusion or sinus air-fluid level. IMPRESSION: Essentially negative MRI of the brain without contrast. Dictated by: Carlos A Boyce MD 08/21/2020 07:24 Carlos A Boyce MD in [facility] 08/21/2020 07:24
== END ==
PROVIDERS: PCP Internal Medicine Adolescent Medicine; Visit Provider Internal Medicine Adolescent Medicine
DX: G93.5 Compression of brain (principal)
CPT/HCPCS: 70551; 72141; 76376

== ENCOUNTER → 2020-10-09 16:00 | Outpatient (CLI) | payer BC, SELFPAY ==
[2020-10-09 17:14] LABS: Triiodothryronine (T3) Uptake 32 % (23.5-40.5)
[2020-10-09 17:15] LABS: Free Thyroxine Index 3.3 ug/dL (5.93-13.13); T4 (Thyroxine) 10.4 ug/dl (5.53-11.0)
[2020-10-09 17:28] LABS: Thyroid Stimulating Hormone 0.57 uIU/mL (0.465-4.68)
[2020-10-11 14:49] LABS: Anti-Centromere B Antibodies >8.0 AI (0.0-0.9); Anti-DNA (DS) Ab Qn <1 IU/mL (0-9); Anti-Jo-1 <0.2 AI (0.0-0.9); Anti-Smith Antibody <0.2 AI (0.0-0.9); Antichromatin Antibodies <0.2 AI (0.0-0.9); Antiscleroderma-70 Antibodies <0.2 AI (0.0-0.9); RNP Antibodies <0.2 AI (0.0-0.9); Sjogren's Anti-SS-A <0.2 AI (0.0-0.9); Sjogren's Anti-SS-B <0.2 AI (0.0-0.9)
== END ==
PROVIDERS: Visit Provider Internal Medicine Adolescent Medicine
DX: R53.83 Other fatigue (principal)
CPT/HCPCS: 36415; 82533; 84436; 84443; 84479; 86225; 86235

== ENCOUNTER 2020-11-20 15:30 | Outpatient (RCR) | payer BC, SELFPAY ==
--- NOTE | 2020-09-17 15:57 | HMH.PTOPEV ---
PT Outpatient Evaluation Rehab PT Outpatient Evaluation Start: 09/17/20 15:44 Freq: Status: Active Protocol: Document 09/17/20 15:46 PHORNE (Rec: 09/17/20 15:57 PHORNE [id number]) Electronically Signed By Jorge Luis Branham, PT 09/17/20 15:46 Outpatient Therapy Subjective History Subjective History Pt is 45 yowf who presents with c/o B shld/neck/occipital pain and pressure x ~ 11 mos with insidious onset of symptoms. Pt reports constant but variable amts of pain and pressure throughout her head and neck often worse with L side bending and associated with increased dizziness. Pt with no c/o numbness or tingling at this time. Pt adamantly refused to allow cervical testing other than ROM and strength at this time. Pt has hx of severe anxiety which likely exacerbates these symptoms. Chief Complaint Pain Symptom Type Sharp Symptoms Relieved By Rest/Positioning Symptoms Aggravated By Standing,Bending/Stooping, Physical Activity,Twisting, Walking Prior Functional Limitations None Current Functional Limitations Sleeping,Sitting,Recreation Activity Symptom Description Constant but Variable Level of pain today (0-10) 3 Pain scale - at its worst (0-10) 10 Cervical Eval Palpation Cervical Muscles R Upper Trapezius,L Upper Trapezius Cervical/Thoracic Palpation Findings Tenderness Flexibility Deficits Upper Trapezius Muscle Length (R) Mild Tightness,(L) Mild Tightness Levaetor Scapulae Muscle Length (R) Mild Tightness,(L) Mild Tightness AROM Cervical Spine Extension Active Range of 0-40 Motion (degrees) Cervical Spine Flexion Active Range of 0-40 Motion (degrees) Cervical Spine Right Lateral Flexion 0-30 Active Range of Motion (degrees) Cervical Spine Left Lateral Flexion 0-30 Active Range of Motion (degrees) Cervical Spine Right Rotation Active 0-60 Range of Motion (degrees) Cervical Spine Left Rotation Active 0-60 Range of Motion (degrees) MMT Bilateral Deltoid (C5) 5 Normal Biceps Brachii Strength Grade 5 Normal Wrist Extension Strength Grade
== END 2020-11-20 16:40 | disposition home or self-care (01) ==
LOC: PT 15:30
PROVIDERS: PCP Emergency Medicine; Visit Provider Internal Medicine Adolescent Medicine
DX: S46.819D Strain of other muscles, fascia and tendons at shoulder and upper arm level, unspecified arm, subsequent encounter (principal)
CPT/HCPCS: 97035; 97110; 97140; 97163; 97164

== ENCOUNTER 2021-01-03 15:30 | Outpatient (RCR) | payer BC, SELFPAY ==
--- NOTE | 2020-12-04 16:16 | HMH.PTOPEV ---
PT Outpatient Evaluation Rehab PT Outpatient Evaluation Start: 12/04/20 15:08 Freq: Status: Active Protocol: Document 12/04/20 16:02 NICOLE (Rec: 12/04/20 16:15 PHOCRUZ [id number]) Electronically Signed By Jorge Luis Branham, PT 12/04/20 16:02 Outpatient Therapy Subjective History Subjective History Pt is 45 yowf who presents with R side hip and lateral thigh pain x ~ 1 yr. She states, I slipped on some sweet tea I spilled in my living room floor. She reports pain is deep and aching in nature, worse with sitting or walking. She reports tenderness to palpation mostly in the area inferior to the ASIS on the R side and on middle of the IT band. She has hx of hypermobility in all jts and fibromyalgia. Chief Complaint Pain Symptom Type Ache Symptoms Aggravated By Sitting,Standing,Walking Prior Functional Limitations None Current Functional Limitations Sitting,Recreation Activity, Walking Symptom Description Constant but Variable Level of pain today (0-10) 4 Pain scale - at its worst (0-10) 6 Hip/Knee Eval Palpation Tenderness right Knee Palpation Overall Comment possibly sartorius or hip flexor tendons. Hip Palpation Findings Tenderness MMT bilateral Hip Flexion Strength Grade 4 Good Hip Abduction Strength Grade 4 Good Hip Adduction Strength Grade 4 Good Hip Extension Strength Grade 4 Good Hip External Rotation Strength Grade 4 Good Hip Internal Rotation Strength Grade 5 Normal Knee Extension Strength Grade 5 Normal Knee Flexion Strength Grade 5 Normal ROM Hip ROM Reason Not Measured Within Functional Limits Knee ROM Reason Not Measured Within Functional Limits Special Tests Hip Piriformis Test Negative Left,Negative Right Hip Scouring (Quadrant) Test Negative Left,Negative Right Outpatient Therapy Assessment Impairments Problems/Impairmments Palpation Tenderness,Impaired Strength,Impaired Endurance, Impaired Walking,Impaired Standing,Impaired Sitting, Impaired Recreational Activities,Subjective C/O Pain ,Impaired Self Care/Self Management
== END 2021-01-03 15:35 | disposition home or self-care (01) ==
LOC: PT 15:30
PROVIDERS: PCP Emergency Medicine; Visit Provider Internal Medicine Adolescent Medicine
DX: M76.31 Iliotibial band syndrome, right leg (principal)
CPT/HCPCS: 97110; 97163

== ENCOUNTER 2021-02-10 21:19 | Outpatient (CLI) | payer BC, SELFPAY ==
[2021-02-10 21:35] VITALS: BMI 16.1
[2021-02-10 21:51] VITALS: BP 126/67; PULSE 95; RESP 16; TEMP 36.7; O2SAT 99
[2021-02-10 22:02] VITALS: BP 122/57; PULSE 80; RESP 16; TEMP 36.7; O2SAT 97
== END 2021-02-10 22:00 | disposition home or self-care (01) ==
PROVIDERS: PCP Emergency Medicine; Visit Provider Emergency Medicine
DX: R07.89 Other chest pain (principal); R05.9 Cough, unspecified
CPT/HCPCS: 96365; 96374; G0463

== ENCOUNTER → 2021-03-15 16:51 | Outpatient (CLI) | payer BC, SELFPAY ==
[2021-03-15 17:10] VITALS: BP 97/74; PULSE 95; RESP 20; O2SAT 95
== END ==
PROVIDERS: PCP Emergency Medicine; Visit Provider Family Medicine
DX: M54.9 Dorsalgia, unspecified (principal)

== ENCOUNTER 2021-03-19 15:30 | Outpatient (RCR) | payer BC, SELFPAY ==
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
--- NOTE | 2021-01-14 16:22 | HMH.RHREAS ---
Rehab Reassessment Rehab OP Re-assessment Start: 01/14/21 16:15 Freq: Status: Active Protocol: Document 01/14/21 16:16 PHORPRO (Rec: 01/14/21 16:22 PHORNE [id number]) Electronically Signed By Jorge Luis Branham, PT 01/14/21 16:16 Rehab Re-assessment Subjective Subjective Pt continues to c/o non- specific pain throughout mid- back and into the neck and head intermittently. She also c/o feeling red dizzy and funny in my head, but no specific action causes this vague feeling. Objective Objective Notes Cervical AROM (in deg): Flex= 0-45, Ext= 0-50, R SB= 0-45, L SB= 0-40, R ROT= 0-85, L ROT= 0-80. Assessment Progress Assessment Progressing as Expected Assessment Notes Pt AROM of cervical spine remains essentially full throughout. Pt strength is steadily improving, but is difficult to build as pt underlying anxiety prevents her from completing much exercise with resistance due to fear of increased feelings of 'dizziness' or pain as previously described. Patient goals met ST,2,3,4 Goals Not Met LT,2,3 Revised Goals none Plan Plan Continue per initial POC. Frequency of Therapy 2 x/wk Duration of therapy 8 wks Time and Billing Re-Eval Time 15 Re-Eval Billing Units 1 PHYSICIAN CERTIFICATION: I certify the specified therapy services for Liset Davis are required, authorized, and reviewed every 30 days.
--- NOTE | 2021-02-14 16:30 | HMH.RHREAS ---
Rehab Reassessment Rehab OP Re-assessment Start: 01/14/21 16:15 Freq: Status: Active Protocol: Document 02/14/21 16:29 NICOLE (Rec: 02/14/21 16:29 LUIS ALFREDOCRUZ [id number]) Electronically Signed By Jorge Luis Branham, PT 02/14/21 16:29 Rehab Re-assessment Subjective Subjective Pt reports she feels she has injured her L shld by lifting a pizza stone out of her oven ~ 5 days ago and aggravated the injury by using her L arm to push up out of bed. Objective Objective Notes Cervical AROM (in deg): Flex= 0-50, Ext= 0-50, R SB= 0-45, L SB= 0-45, R ROT= 0-85, L ROT= 0-85. Assessment Progress Assessment Progressing as Expected Assessment Notes Rom appears to be improved, but pain remains fairly constant in thoracic spine with unknown etiology. Patient goals met ST,2,3,4 Goals Not Met LT,2,3 Revised Goals none Plan Plan Continue per initial POC. Frequency of Therapy 2 x/wk Duration of therapy 8 wks Time and Billing Re-Eval Time 15 Re-Eval Billing Units 1 PHYSICIAN CERTIFICATION: I certify the specified therapy services for Liset Davis are required, authorized, and reviewed every 30 days.
--- NOTE | 2021-03-19 16:15 | HMH.RHREAS ---
Rehab Reassessment Rehab OP Re-assessment Start: 01/14/21 16:15 Freq: Status: Active Protocol: Document 03/19/21 16:12 PHOCRUZ (Rec: 03/19/21 16:15 PHORNE [id number]) Electronically Signed By Jorge Luis Branham, PT 03/19/21 16:12 Rehab Re-assessment Subjective Subjective Pt reports she feels she is recovering faster from doing ADLs such as using a swiffer mop on her bathroom floor. Pain remains in Mid-Thoracic spine at T6 level on the spinous process specifically. Objective Objective Notes MMT B UE: Grossly 5/5 throughout. Pain: At worst is 4/10 on Thoracic spine. Palpation tenderness: 0/4 tenderness to palpation in B UT. 2/4 palpation tenderness on spinous process of T6 vertebrae. Assessment Progress Assessment Progressing as Expected Assessment Notes Pt has shown significant improvements in AROM of cervical spine and in overall core stability. At this point her throacic pain is her main problem, but this has not been effected by current treatment regimen. Pt is best served by continuing HEP as tolerated independently and adding in endurance training as able for her fibromyalgia. Patient goals met ST,2,3,4 LT,2,3 Goals Not Met none Revised Goals none Plan Plan Pt will d/c to [facility] program. Frequency of Therapy 0 Duration of therapy 0 Time and Billing Re-Eval Time 15 Re-Eval Billing Units 1 PHYSICIAN CERTIFICATION: I certify the specified therapy services for Liset Davis are required, authorized, and reviewed every 30 days.
== END 2021-03-19 15:35 | disposition home or self-care (01) ==
LOC: PT 15:30
PROVIDERS: PCP Emergency Medicine; Visit Provider Internal Medicine Adolescent Medicine
DX: S46.819D Strain of other muscles, fascia and tendons at shoulder and upper arm level, unspecified arm, subsequent encounter (principal)
CPT/HCPCS: 97035; 97110; 97140; 97163; 97164

== ENCOUNTER → 2021-05-28 22:02 | Outpatient (CLI) | payer BC, SELFPAY ==
[2021-05-28 22:23] VITALS: BMI 16.8
[2021-05-28 22:28] VITALS: BMI 16.8
[2021-05-28 22:54] VITALS: BP 102/66; PULSE 87; RESP 20; TEMP 37.1; O2SAT 99
== END ==
PROVIDERS: PCP Emergency Medicine; Visit Provider Emergency Medicine
DX: J18.9 Pneumonia, unspecified organism (principal)
CPT/HCPCS: J0696

== ENCOUNTER → 2021-06-03 15:51 | Outpatient (CLI) | payer BC, SELFPAY ==
--- NOTE | 2021-06-03 15:51 | MR_ITS ---
PROCEDURE INFORMATION: Exam: MR Thoracic Spine Without Contrast Exam date and time: 06/03/2021 4:14 PM Age: 45 years old Clinical indication: Pain in thoracic spine; Additional info: Back pain. Thoracic pain and stiffness. X1.5yrs. No recent injury or trauma. Prior MR 10-01-17 TECHNIQUE: Imaging protocol: Multiplanar magnetic resonance images of the thoracic spine without intravenous contrast. COMPARISON: MR THORACIC SPINE W/O CON [id number] 10/01/2017 6:30 PM FINDINGS: Vertebrae: Multilevel Schmorl's node formation are demonstrated throughout the thoracic spine, measuring up to 5 mm at T1-2. Spinal cord: Thoracic cord is intact. T1-T2: No significant disc disease. No significant spinal canal stenosis. T2-T3: No significant disc disease. No significant spinal canal stenosis. T3-T4: No significant disc disease. No significant spinal canal stenosis. T4-T5: No significant disc disease. No significant spinal canal stenosis. T5-T6: No significant disc disease. No significant spinal canal stenosis. T6-T7: No significant disc disease. No significant spinal canal stenosis. T7-T8: No significant disc disease. No significant spinal canal stenosis. T8-T9: No significant disc disease. No significant spinal canal stenosis. T9-T10: Mild changes of disc degeneration at T9-10. No significant spinal canal stenosis. T10-T11: Mild changes of disc degeneration . No significant disc disease. No significant spinal canal stenosis. T11-T12: Mild changes of disc degeneration. No significant disc disease. No significant spinal canal stenosis. Soft tissues: Limited visualization of the pelvis on the locater waredresser significant for mildly prominent follicles in the right ovary. Clinically correlate. IMPRESSION: 1. No evidence of disc bulge, herniation spinal or neural foraminal stenosis. 2. Multilevel Schmorl's node formation. 3. Mild changes of disc degeneration at T9-10, T10-11 and T11-12.
== END ==
PROVIDERS: PCP Emergency Medicine; Visit Provider Emergency Medicine
DX: M54.6 Pain in thoracic spine (principal)
CPT/HCPCS: 72146

== ENCOUNTER → 2021-10-07 17:16 | Outpatient (CLI) | payer BC, SELFPAY ==
[2021-10-07 17:23] VITALS: BMI 15.4
== END ==
PROVIDERS: PCP Emergency Medicine; Visit Provider Emergency Medicine
DX: M54.2 Cervicalgia (principal)

== ENCOUNTER → 2021-12-21 22:56 | Outpatient (CLI) | payer BC, SELFPAY ==
[2021-12-21 23:04] VITALS: BMI 154466.5
== END | disposition home or self-care (01) ==
PROVIDERS: PCP Emergency Medicine; Visit Provider Emergency Medicine
DX: J06.9 Acute upper respiratory infection, unspecified (principal)
CPT/HCPCS: 96372; J0696

== ENCOUNTER 2022-04-20 00:29 | Emergency (ER) | payer BC, SELFPAY ==
[2022-04-20 00:31] VITALS: BP 126/77; PULSE 98; RESP 16; TEMP 36.6; O2SAT 98; BMI 21.0
[2022-04-20 00:42] VITALS: BP 126/77; PULSE 98; RESP 18; TEMP 36.6; O2SAT 98
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
== END 2022-04-20 00:58 | disposition home or self-care (01) ==
PROVIDERS: Emergency Provider Emergency Medicine; PCP Emergency Medicine
DX: T23.222A Burn of second degree of single left finger (nail) except thumb, initial encounter; T23.212A Burn of second degree of left thumb (nail), initial encounter; X19.XXXA Contact with other heat and hot substances, initial encounter
CPT/HCPCS: 99283; 99284

== ENCOUNTER → 2022-06-26 12:23 | Outpatient (CLI) | payer BC, SELFPAY ==
[2022-06-26 12:57] LABS: Basophils % 0.5 % (0.1-2.0); Eosinophils # 0.2 K/mm3 (0.0-0.4); Eosinophils % 2.3 % (0.1-12.0); Hematocrit 45.7 % (37.0-47.0); Hemoglobin 14.7 g/dL (12.2-16.2); Lymphocytes # 1.7 K/mm3 (0.7-4.5); Lymphocytes % 20.1 % (10-50); Mean Corpuscular HGB Conc 32.2 g/dL (31.8-35.4); Mean Corpuscular Volume 105.7 fl (81-99); Mean Platelet Volume 8.3 fl (7.4-10.4); Monocytes # 0.5 K/mm3 (0.1-1.0); Monocytes % 5.8 % (1.7-9.3); Neutrophils # 6.1 K/mm3 (1.8-7.8); Neutrophils % 71.3 % (37.0-80.0); Platelet Count 288 K/mm3 (142-424); Red Blood Count 4.32 M/mm3 (4.20-5.40); White Blood Count 8.6 K/mm3 (4.8-10.8)
[2022-06-26 14:38] LABS: Alanine Aminotransferase 19 U/L (12-78); Albumin Level 4.5 g/dl (3.5-5.0); Albumin/Globulin Ratio 1.5 (1.1-1.8); Alkaline Phosphatase 66 U/L (38-126); Anion Gap 8.4 mEq/L (5-15); Aspartate Amino Transferase 32 U/L (14-36); Bilirubin,Total 0.4 mg/dl (0.2-1.3); Blood Urea Nitrogen 12 mg/dl (7-17); Calcium 8.9 mg/dl (8.4-10.2); Carbon Dioxide 27 mmol/L (22.0-30.0); Chloride 103 mmol/L (98-107); Chol/HDL Ratio 2.6 (1-3.5); Cholesterol 219 mg/dl (140-200); Estimated Glomerular Filt Rate 89 ml/min (>60); GFR (African American) 108 ML/MIN (>60); Glucose 75 mg/dl (74-100); HDL Cholesterol 84 mg/dl (40-60); Potassium 4.4 mmoL/L (3.5-5.1); Sodium 134 mmol/L (136-145); Total Protein,Serum 7.5 g/dl (6.3-8.2); Triglycerides 143 mg/dl (30-150); VLDL Cholesterol 29 mg/dL (0-40)
[2022-06-26 14:49] LABS: Direct LDL Cholesterol 88.75 mg/dL (100-129)
[2022-06-26 14:54] LABS: 25-OH Vitamin D, Total 21.4 ng/mL (30-100); Free T4 (Free Thyroxine) 1.14 ng/dl (0.78-2.19)
[2022-06-26 15:09] LABS: Thyroid Stimulating Hormone 1.05 uIU/mL (0.465-4.68)
== END ==
PROVIDERS: PCP Emergency Medicine; Visit Provider Emergency Medicine
DX: E03.9 Hypothyroidism, unspecified (principal); E55.9 Vitamin D deficiency, unspecified; R53.83 Other fatigue; K59.00 Constipation, unspecified
CPT/HCPCS: 36415; 80053; 80061; 82306; 84439; 84443; 85025

== ENCOUNTER 2022-07-14 17:07 | Outpatient (CLI) | payer BC, SELFPAY ==
[2022-07-14 18:22] VITALS: BP 108/66; PULSE 78; RESP 16; O2SAT 99
[2022-07-14 18:53] VITALS: BP 99/68; PULSE 72; RESP 15; O2SAT 99
== END 2022-07-14 18:54 | disposition home or self-care (01) ==
LOC: INF 17:09
PROVIDERS: PCP Emergency Medicine; Visit Provider Emergency Medicine
DX: J32.9 Chronic sinusitis, unspecified (principal)
CPT/HCPCS: 96365; 96372; G0463; J0696

== ENCOUNTER 2022-08-21 14:00 | Outpatient (RCR) | payer BC, SELFPAY ==
--- NOTE | 2022-07-01 14:42 | HMH.PTOPEV ---
PT Outpatient Evaluation Rehab PT Outpatient Evaluation Start: 07/01/22 14:28 Freq: Status: Active Protocol: Document 07/01/22 14:28 BRODY (Rec: 07/01/22 14:41 BRODY [id number]) E-signed By Mukul Meyer, PT Outpatient Therapy Subjective History Subjective History Pt reports h/o chronic LBP and bilateral hip for ~2 years. Pt reports previous 'bursitis' diagnoses for hips, however, reports exacerbation since lifting injury in May. Pt reports midline LBP in the lumbo-sacral junction area, with localized and referred pain into b/l gluts and grt. trochanter areas. Chief Complaint Pain,Stiff,Clicks,Weakness Symptom Type Ache,Throb,Sharp,Dull Symptoms Relieved By Rest/Positioning Symptoms Aggravated By Sitting,Physical Activity, Walking,Lifting Prior Functional Limitations Lifting,Housework,Squatting, Walking,Stairs Current Functional Limitations Lifting,Housework,Squatting, Walking,Stairs Symptom Description Constant but Variable Level of pain today (0-10) 8 Pain scale - at its best (0-10) 4 Pain scale - at its worst (0-10) 8 Lumbopelvic Eval Posture Thoracic Spine Posture Standing Position Neutral Lumbar Spine Posture Standing Position Neutral Assistive device Assistive Devices None / NA Gait Observation General Gait Pattern Observation Antalgic Gait,Wide Based Gait Palapation tenderness bilateral lumbar spinal tenderness Yes: 3/4 paraspinal tenderness Yes: 3-4/4 buttock tenderness Yes: 3/4 Lumbar/Sacral Palpation Findings Tenderness,Muscle Guarding Accessory Movement L-spine Vertebrae Accessory Movements [facility] [employer] [place] that Elicit Symptoms L2 bilateral L3 bilateral L4 bilateral L5 bilateral S1 bilateral Range of Motion Lumbar Spine Active Flexion Range of 0-45 Motion (degrees) Lumbar Spine Active Extension Range of 0-10 Motion (degrees) Left Lumbar Spine Lateral Flexion Active 0-25 Range of Motion (degrees) Right Lumbar Spine Lateral Flexion 0-25 Active Range of Motion (degrees) Lumbar Spine ROM Limitations Soft Tissue Tightness,Pain Manual Muscle Test Bilateral Knee Extension Strength Grade 4- Good- Knee Flexion Strength Grade 4- Good- Hip Flexion Strength Grade
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
== END 2022-08-21 14:05 | disposition home or self-care (01) ==
LOC: PT 14:00
PROVIDERS: PCP Emergency Medicine; Visit Provider Emergency Medicine
DX: M54.2 Cervicalgia (principal); M54.9 Dorsalgia, unspecified; M54.50 Low back pain, unspecified; M25.552 Pain in left hip; M25.551 Pain in right hip
CPT/HCPCS: 97010; 97014; 97035; 97110; 97113; 97163; 97164; G0283

== ENCOUNTER 2022-08-29 15:07 | Emergency (ER) | payer BC, SELFPAY ==
[2022-08-29 15:09] VITALS: BP 141/90; PULSE 104; RESP 17; TEMP 36.8; O2SAT 99; BMI 21.6
[2022-08-29 15:12] VITALS: BP 141/90; PULSE 104; RESP 18; O2SAT 100
--- NOTE | 2022-08-29 15:28 | HMH.EDGENADL ---
Discharge Plan Disposition Patient Disposition: Home, Self-Care Prescriptions Prescriptions: No Action loratadine 10 mg capsule 10 mg PO DAILY lorazepam 1 mg tablet 1 mg PO TID Qty: 90 5RF Referrals Follow up/Referrals: David Lee MD [Primary Care Provider] - See instructions Clinical Impressions Clinical Impression: Acute dehydration, Light headedness Discharge ED Provider: Griffin Mccall General Adult HPI General Chief complaint: Dizziness Stated complaint: dizzy, bilateral shoulder/neck tightness Time Seen by Provider: 08/29/22 15:28 Mode of Arrival: Ambulatory Source of Information: Patient Limitations: No Limitations Description of Symptoms (Recalled from ER Triage Doc. by RN): 46 F presents from home with upper back pain, dizziness, unsteady balance that started 2 years ago. Patient states she believes she is dehydrated today because her lightheadedness is worse when rising. History of Present Illness HPI narrative: Patient is a 46-year-old female presenting with lightheaded sensation. She states this is been getting worse with any type of positional movement going from lying to sitting to standing. She feels this way at rest however it is definitely worse with sitting upright and standing upright. No rotary sensation she states that she has had vertigo in the past and this feels nothing like that she describes it more as a lightheadedness. No loss of consciousness or near syncope with this. States she has been to the emergency department for this in the past and was given IV fluids had significant improvement in her symptoms. She denies any changes in coordination vision or other neurologic symptoms. She states that she knows that she does not drink enough fluids by mouth and feels that she is dehydrated. Related Data Home Medications Medication Instructions Recorded Confirmed loratadine 10 mg capsule 10 mg PO DAILY 03/05/20 08/25/22 Previous Rx's Medication Instructions Recorded lorazepam 1 mg tablet 1 mg PO TID Anxiety #90 tabs 03/19/22 Allergies Allergy/AdvReac Type Severity Reaction Status Date / Time rice Allergy Intermediate S-DIFF. Verified 08/25/22 15:02 BREATHING diphenhydramine Allergy Mild NA-DIZZINES Verified 08/25/22 15:02 [DIPHENHYDRAMINE] S lansoprazole [From PREVACID] Allergy Mild CHEST PAIN Verified 08/25/22 15:02 Corticosteroids Allergy Unknown BLACK OUT Verified 08/25/22 15:02 (Glucocorticoids) Fish Containing Products Allergy Unknown NA-NAUSEA Verified 08/25/22 15:02 [FISH CONTAINING PRODUCTS] penicillin G [PENICILLIN G] Allergy Unknown I-ITCHING Verified 08/25/22 15:02 SHELLFISH (FOOD) Allergy Mild UNKNOWN Uncoded 08/25/22 15:02 [place] Allergy Unknown Uncoded 08/25/22 15:02 PFSH [facility] Disclaimer: The information contained in this section may have been updated after the patient was seen, as this information can be updated by other users. Social History Smoking Status: Current every day smoker tobacco type: cigarettes packs per day: 1 second hand exposure: Yes alcohol intake: never substance use type: denies use current occupational status: employed Travel in the last 8 weeks: None household members: spouse and children housing: house ROS Obtained: Yes All systems reviewed & no additional complaints except as documented Physical Exam General General appearance: alert and in no apparent distress Respiratory Respiratory exam: Present normal lung sounds bilaterally Cardiovascular Cardiovascular exam: Present regular rate and other (Slight delayed capillary refill); Absent tachycardia Neurological Exam Neurological exam: Present alert, oriented X3, CN II-XII intact, normal gait, motor sensory deficit and other (Posterior circulation exam normal) Medical Decision Making Ish Inquiry Pt receiving controlled substance: No Vital Signs: 08/29/22 1
[2022-08-29 15:30] VITALS: BP 133/84; PULSE 96; RESP 20; O2SAT 99
--- NOTE | 2022-08-29 15:45 | ECG_ITS ---
APPROVED REPORT Exam: Resting ECG HR:89 bpm ECG Measurements Heart Rate 89 AXES IN 139 P 83 QRSd 73 QRS 85 QT 299 T -49 QTc 345 Conclusion SINUS RHYTHM NONSPECIFIC ST & T-WAVE ABNORMALITY ABNORMAL ECG UNCONFIRMED REPORT Electronically signed by : Almas Dias MD 08/30/2022 11:22:13
[2022-08-29 15:59] LABS: Basophils # 0.1 K/mm3 (0-0.2); Basophils % 0.7 % (0.1-2.0); Eosinophils # 0.2 K/mm3 (0.0-0.4); Hematocrit 44.6 % (37.0-47.0); Hemoglobin 14.4 g/dL (12.2-16.2); Lymphocytes # 1.6 K/mm3 (0.7-4.5); Lymphocytes % 24.1 % (10-50); Mean Corpuscular HGB Conc 32.4 g/dL (31.8-35.4); Mean Corpuscular Hemoglobin 33.5 pg (27.0-31.2); Mean Corpuscular Volume 103.2 fl (81-99); Mean Platelet Volume 8.3 fl (7.4-10.4); Monocytes # 0.4 K/mm3 (0.1-1.0); Monocytes % 5.7 % (1.7-9.3); Neutrophils # 4.5 K/mm3 (1.8-7.8); Neutrophils % 66.5 % (37.0-80.0); Platelet Count 289 K/mm3 (142-424); Red Blood Count 4.32 M/mm3 (4.20-5.40); Red Cell Distribution Width 12.7 % (11.5-17.5); White Blood Count 6.7 K/mm3 (4.8-10.8)
[2022-08-29 16:01] VITALS: BP 124/77; PULSE 88; O2SAT 99
[2022-08-29 16:03] LABS: Alanine Aminotransferase 27 U/L (12-78); Albumin Level 4.6 g/dl (3.5-5.0); Albumin/Globulin Ratio 1.3 (1.1-1.8); Alkaline Phosphatase 71 U/L (38-126); Anion Gap 13.8 mEq/L (5-15); Aspartate Amino Transferase 41 U/L (14-36); Bilirubin,Total 0.4 mg/dl (0.2-1.3); Blood Urea Nitrogen 14 mg/dl (7-17); Calcium 8.9 mg/dl (8.4-10.2); Carbon Dioxide 28 mmol/L (22.0-30.0); Chloride 102 mmol/L (98-107); Creatinine Clearance Estimated 75 mL/min (50-200); Estimated Glomerular Filt Rate 77 ml/min (>60); GFR (African American) 93 ML/MIN (>60); Globulin 3.5 g/dL (1.3-3.2); Glucose 93 mg/dl (74-100); Phosphorous 3.1 mg/dl (2.5-4.5); Potassium 3.8 mmoL/L (3.5-5.1); Sodium 140 mmol/L (136-145); Total Protein,Serum 8.1 g/dl (6.3-8.2)
[2022-08-29 16:30] VITALS: BP 117/73; PULSE 81; O2SAT 100
[2022-08-29 16:33] LABS: Thyroid Stimulating Hormone 1.29 uIU/mL (0.465-4.68)
--- NOTE | 2022-08-29 16:53 | PC.NURSE ---
pt ambulatory to restroom with normal gait. no complications
--- NOTE | 2022-08-29 17:40 | PC.NURSE ---
Rounded on patient, she states ready to go home I spoke with ED doctor who is willing to DC her and will come in to check her out shortly. Patient updated
[2022-08-29 18:08] VITALS: BP 120/68; PULSE 84; RESP 20; TEMP 36.8; O2SAT 100
== END 2022-08-29 18:09 | disposition home or self-care (01) ==
PROVIDERS: Emergency Provider Student in an Organized Health Care Education/Training Program; PCP Emergency Medicine
DX: E86.0 Dehydration (principal); R42 Dizziness and giddiness; M54.6 Pain in thoracic spine; F17.210 Nicotine dependence, cigarettes, uncomplicated
CPT/HCPCS: 80053; 83735; 84100; 84443; 85025; 93005; 96360; 99284; 99285

== ENCOUNTER → 2022-10-20 12:47 | Outpatient (CLI) | payer BC, SELFPAY ==
--- NOTE | 2022-10-20 12:47 | CT_ITS ---
FINAL REPORT TECHNIQUE: Axial CT images of the face were obtained without contrast. Coronal and sagittal reformatted images were also obtained. This study was performed with techniques to keep radiation doses as low as reasonably achievable, (ALARA). Individualized dose reduction techniques using automated exposure control or adjustment of mA and/or kV according to the patient's size were employed. CLINICAL HISTORY: dizziness/vertigo/sinusitis COMPARISON: 01/17/2020 FINDINGS: There is no evidence of fracture.The orbits are intact.The globes are intact.No soft tissue mass is seen. There is mild mucosal thickening in the maxillary sinus on the right side. There is obstruction of the right maxillary sinus ostium and infundibulum secondary to mucosal thickening. There are accessory medial maxillary ostia bilaterally. There is paradoxical rotation bilaterally of the middle turbinates. The left inferior turbinate is hypoplastic. IMPRESSION: No fracture or acute bony abnormality identified. Obstruction of the right maxillary sinus ostium and infundibulum secondary to mucosal thickening. Mild mucosal thickening in the right maxillary sinus. Reviewed, Interpreted and Dictated by Jean-Paul Story III, MD Transcribed by Kristine Tyler Authenticated and [facility]
== END ==
LOC: RAD 12:47
PROVIDERS: PCP Emergency Medicine; Visit Provider Nurse Practitioner
DX: R42 Dizziness and giddiness (principal); J32.9 Chronic sinusitis, unspecified
CPT/HCPCS: 70486

== ENCOUNTER → 2022-11-04 15:15 | Outpatient (POV) | payer BC, SELFPAY | PROVIDERS: Visit Provider Specialist/Technologist | DX: Z00.00 Encounter for general adult medical examination without abnormal findings (principal) ==

== ENCOUNTER 2023-03-31 15:45 | Outpatient (CLI) | payer BC, SELFPAY | END 2023-03-31 23:59 | LOC: LAB.DROPOF 04-01 09:22 | PROVIDERS: PCP Podiatrist; Visit Provider Podiatrist | DX: S91.101A Unspecified open wound of right great toe without damage to nail, initial encounter (principal); B35.1 Tinea unguium | CPT/HCPCS: 87102; 87206; 87220 ==

== ENCOUNTER 2023-04-14 14:50 | Outpatient (CLI) | payer BC, SELFPAY ==
--- NOTE | 2023-04-14 14:58 | XR_ITS ---
FINAL REPORT CLINICAL HISTORY: foot pain COMPARISON: None FINDINGS: LEFT FOOT: Three views show no evidence of acute displaced fracture or dislocation of the visualized bony architecture. The joint spaces appear normal. IMPRESSION: Unremarkable exam. Reviewed, Interpreted and Dictated by Abbe Palacios MD Transcribed by Kristine Tyler Authenticated and [facility]
--- NOTE | 2023-04-14 14:58 | XR_ITS ---
FINAL REPORT CLINICAL HISTORY: foot pain COMPARISON: None FINDINGS: Three views show no evidence of acute displaced fracture or dislocation of the visualized bony architecture. The joint spaces appear normal. IMPRESSION: Unremarkable exam. Reviewed, Interpreted and Dictated by Abbe Palacios MD Transcribed by Kristine Tyler Authenticated and [facility]
== END 2023-04-14 23:59 ==
LOC: RAD 14:51
PROVIDERS: PCP Nurse Practitioner Family; Visit Provider Podiatrist
DX: M79.671 Pain in right foot (principal); M79.672 Pain in left foot
CPT/HCPCS: 73630

== ENCOUNTER 2024-05-10 15:00 | Outpatient (RCR) | payer BC, SELFPAY | END 2024-05-10 23:59 | disposition home or self-care (01) | LOC: PT 15:00 | PROVIDERS: PCP Nurse Practitioner Family; Visit Provider Nurse Practitioner | DX: R42 Dizziness and giddiness (principal) | CPT/HCPCS: 95992; 97112; 97163 ==

== ENCOUNTER 2024-06-13 14:00 | Outpatient (RCR) | payer BC, SELFPAY | END 2024-06-13 23:59 | disposition home or self-care (01) | LOC: ST 14:00 | PROVIDERS: Visit Provider Family Medicine | DX: S03.40XA Sprain of jaw, unspecified side, initial encounter (principal) | CPT/HCPCS: 92526; 92610 ==

== ENCOUNTER 2024-07-06 17:00 | Outpatient (RCR) | payer BC, SELFPAY | END 2024-07-06 23:59 | disposition home or self-care (01) | LOC: PT 17:00 | PROVIDERS: PCP Nurse Practitioner; Visit Provider Nurse Practitioner | DX: R42 Dizziness and giddiness (principal); M54.2 Cervicalgia | CPT/HCPCS: 97110; 97140; 97163 ==

== ENCOUNTER 2024-07-07 14:00 | Outpatient (RCR) | payer BC, SELFPAY | END 2024-07-07 23:59 | disposition home or self-care (01) | LOC: ST 14:00 | PROVIDERS: Visit Provider Family Medicine | DX: S03.40XA Sprain of jaw, unspecified side, initial encounter (principal) | CPT/HCPCS: 92526 ==

== ENCOUNTER 2024-08-04 13:00 | Outpatient (RCR) | payer BC, SELFPAY | END 2024-08-04 23:59 | disposition home or self-care (01) | LOC: PT 13:00 | PROVIDERS: PCP Nurse Practitioner; Visit Provider Nurse Practitioner | DX: M54.2 Cervicalgia (principal); R42 Dizziness and giddiness | CPT/HCPCS: 97110; 97112; 97164 ==

== ENCOUNTER 2024-08-09 15:00 | Outpatient (RCR) | payer BC, SELFPAY | END 2024-08-09 23:59 | disposition home or self-care (01) | LOC: ST 15:00 | PROVIDERS: Visit Provider Nurse Practitioner | DX: S03.40XA Sprain of jaw, unspecified side, initial encounter (principal) | CPT/HCPCS: 92526 ==

== ENCOUNTER 2024-08-10 15:00 | Outpatient (RCR) | payer BC, SELFPAY | END 2024-08-10 23:59 | disposition home or self-care (01) | LOC: PT 15:00 | PROVIDERS: Visit Provider Nurse Practitioner | DX: S89.91XA Unspecified injury of right lower leg, initial encounter (principal) | CPT/HCPCS: 97163 ==

== ENCOUNTER 2024-09-06 15:00 | Outpatient (RCR) | payer BC, SELFPAY | END 2024-09-06 23:59 | disposition home or self-care (01) | LOC: ST 15:00 | PROVIDERS: Visit Provider Nurse Practitioner | DX: S03.40XA Sprain of jaw, unspecified side, initial encounter (principal) | CPT/HCPCS: 92526 ==

== ENCOUNTER 2024-09-12 15:00 | Outpatient (RCR) | payer BC, SELFPAY | END 2024-09-12 23:59 | disposition home or self-care (01) | LOC: PT 15:00 | PROVIDERS: Visit Provider Nurse Practitioner | DX: S89.91XA Unspecified injury of right lower leg, initial encounter (principal) | CPT/HCPCS: 97035; 97110; 97140; 97164 ==

== ENCOUNTER 2024-09-13 15:05 | Outpatient (RCR) | payer BC, SELFPAY | END 2024-09-13 23:59 | disposition home or self-care (01) | LOC: ST 15:05 | PROVIDERS: Visit Provider Nurse Practitioner | DX: S03.40XA Sprain of jaw, unspecified side, initial encounter (principal); X58.XXXA Exposure to other specified factors, initial encounter ==

== ENCOUNTER 2024-09-29 16:00 | Outpatient (CLI) | payer BC, SELFPAY ==
[2024-10-04 04:57] LABS: F315-IgE Green Bean <0.10 kU/L (Class 0)
== END 2024-09-29 23:59 | disposition home or self-care (01) ==
LOC: LAB 16:01
PROVIDERS: PCP Nurse Practitioner; Visit Provider Allergy & Immunology
DX: J30.1 Allergic rhinitis due to pollen (principal); J30.89 Other allergic rhinitis; T78.1XXA Other adverse food reactions, not elsewhere classified, initial encounter
CPT/HCPCS: 36415; 82785; 86003